=== PATIENT | female | born 1950 | race Asian ===

== ENCOUNTER 2024-07-08 18:31 | Observation (INO) | payer MEDICARE, SELFPAY ==
--- NOTE | 2024-07-08 19:20 | P.CALLCOV_ITS ---
Call Coverage Note Note Date of Patient Contact: 07/08/24 Narrative of Care Provided: Accepted for transfer from [facility] in [place] for new CVA. Patient was in their ER with speech deficits and RUE weakness, peak NIH of 6 now improved to 2 per ER provider. Patient has been stable without change since yesterday afternoon, no beds at their facility due to Norovirus outbreak and no beds at their acute rehab. Was seen by therapy today and recommended for acute rehab. She was admitted to stroke service on 07/03: discharge summary included here for ease of transfer of information. In short she had recent stroke in may 2024, she went to acute rehab at [facility] after that. She returned for speech difficulties around 07/02 and unilateral weakness and went to stroke center with negative evaluation, possible capsular syndrome. She had negative evaluation there and normal EEG. She returned with new symptoms to [facility] on 07/07 with same symptoms. MRI there showed a NEW infarct. Recommended for asa/plavix x21 days. PT/OT eval recommended acute rehab there. Prior TTE done 05/2024. She basically is transferred from [facility] ER for continued therapy prior to acute rehab given lack of available beds at [facility]. From stroke service discharge summary: The patient is a 73-year-old female patient that with past medical history of osteoarthritis, gastroesophageal flux disease, lumbar spondylosis, hypertension, hyperlipidemia, anxiety and depression, type 2 diabetes, chronic pain syndrome, opiate dependence who was transferred from outside hospital for recurrent episodes of facial drooping/dizziness and aphasia. ? The patient was admitted to outside hospital on May for evaluation of left-sided weakness. CT head was unremarkable but MRI confirmed the presence of acute lacunar stroke in the right zainab. She had TTE that was unremarkable and carotid Doppler that was unremarkable for significant stenosis. She was started on dual antiplatelet therapy by aspirin and Plavix for 21 days then switch to aspirin monotherapy with high intensity statin. As per the interview today, the patient as well as his sister mentioned that the day before yesterday 07/01/2024 while the patient was standing up was not flowing her room, she had a sudden onset dizziness that she describes as wobbly sensation as well as unsteadiness that was followed within a few minutes by generalized body weakness but the patient did not sustain any fall and was able to slide herself down to sit on the floor. She also relates that she was not able to speak and shortly her sister arrived and picked her up to sit on the bed. The sister tells me that the patient was not able to speak but there was no evidence of facial asymmetry, abnormal body movements or eye deviation. The entire episode lasted between 30 minutes up to 1 hour. On the next day, they re ported this episode to the physical therapy recommended evaluation in the ED. She presented to the ED for outside hospital where she had unremarkable physical examination, stable vital signs, unremarkable CT head and brain MRI obtained as well that showed only her prior right pontine stroke. Today, 07/03/2024 around 7:30 AM while she was sitting down to have her breakfast, she had sudden onset aphasia that her sister witnessed again. This lasted for around 5 to 6 minutes and was associated with left lower facial asymmetry/drooping as well as dizziness. The sister did measure her blood pressure during this episode and reported at 179/91 mmHg. She reported to outside hospital where she had a repeat CT head that was unremarkable although while in the CT scan suite, her nurses reported 3 minutes episode of right-sided weakness and facial drooping as per documentation. She was loaded with 300 mg of clopidogrel in the outside hospital and the patient was transferred to [facility] for further evaluation of suspected capsular warning syndrome versus recrudescence of old stroke. ? In the ED, vital signs included a blood pressure of 169/71 mmHg, pulse rate of 84, respiratory of 20 and temperature of 36.7. On my evaluation the patient had fluent speech without evidence of aphasia, paraphasia or dysarthria. She had intact naming and repetition. There was no evidence of facial asymmetry, plantar drift, dysmetria. Her deep tendon reflexes examination showed brisk but symmetrical deep tendon reflexes in upper lower extremities without evidence of pathological reflexes such as Anel Babinski. In the ED, she was given 81 mg of aspirin as well as 1 L of LR. ? HOSPITAL COURSE: ? Admitted for further work-up. She was continued on DAPT. Home BP meds held for permissive HTN given possibility of stroke. ? TCD with ME were attempted but unable to visualize L MCA due to temporal hyperostosis. EEG was unremarkable. MRI showed moderate amount of small vessel disease, no infarct, no evidence of CAA. ? Overall, her experience of repetitive episodes of possible expressive aphasia, R sided weakness, and dizziness does not have a clear etiology. Aphasia makes a capsular or pontine warning syndrome less likely unless it was in fact anarthria. Thalamic TIA could conceivable cause such a syndrome depending on internal capsular involvement. No fixed stenosis as source of recurrent hypoperfusion infarct events. No CAA on MRI so this was not an amyloid spell. ? We will treat with DAPT x21 then ASA monotherapy. She should also take high i ntensity statin and treat blood pressure. She was on losartan + atenolol at home. We opted to increase losartan and switch the atenolol with amlodipine. We had her continue home metformin on discharge. ? Follow up with PCP and stroke clinic. ER documentation available: FriJul 07, 2024 0858 Triage note reviewed, vitals seema mcclellan, EMS report received [MR] 0918 Code stroke activated [MR] 0919 Deficits resolved [MR] 0925 On repeat exam now with slightly th ickened speech compared to initial, and some right upper extremity weakness but not as severe as before [MR] 0925 NIH Stroke Scale/Score (NIHSS) ?RES ULT SUMMARY:2 pointsNIH Stroke Scale??INPUTS:1A: Level of consciousness -> 0 = Alert; keenly lwcliorjon7D: Ask month and age -> 0 = Both questions [id number]: 'Blink eyes' & 'squeeze hands' -> 0 = Performs both tasks2: Horizontal extraocular movements -> 0 = Normal3: Visual baker -> 0 = No visual loss4: Facial palsy -> 0 = Normal bedrtofu3W: Left arm motor drift -> 0 = No drift for 10 aswemvd5P: Right arm motor drift -> 2 = Drift, hits bed6A: Left leg motor drift -> 0 = No drift for 5 rmevrcj4S: Right leg motor drift -> 0 = No drift for 5 seconds7: Limb Ataxia -> 0 = No ataxia8: Sensation -> 0 = Normal; no sensory loss9: Language/aphasia -> 0 = Normal; no : Dysarthria -> 0 = Cjrkyy14: Extinction/inattention -> 0 = No abnormality?This was initial NIH [MR] 0926 This was peak NIH?NIH Stroke Scale/ Score (NIHSS) from [employer] on 07/07/2024 All calculations should be rechecked by clinician prior to use ?RESULT SUMMARY:8 pointsNIH Stroke Scale??INPUTS:1A: Level of consciousness -> 0 = Alert; keenly ogmjuzjcuu6K: Ask month and age -> 2 = Icjcmlm2R: 'Blink eyes' & 'squeeze hands' -> 0 = Performs both tasks2: Horizontal extraocular movements -> 0 = Normal3: Visual baker -> 0 = No visual loss4: Facial palsy -> 0 = Normal mqmfwvaz6X: Left arm motor drift -> 0 = No drift for 10 iiqjtrn9G: Right arm motor drift -> 2 = Drift, hits bed6A: Left leg motor drift -> 0 = No drift for 5 vuljipi8L: Right leg motor drift -> 0 = No drift for 5 seconds7: Limb Ataxia -> 0 = No ataxia8: Sensation -> 0 = Normal; no sensory loss9: Language/aphasia -> 2 = Severe aphasia: fragmentary expression, inference needed, cannot identify [id number]: Dysarthria -> 2 = Severe dysarthria: unintelligible slurring or out of proportion to fzndllela38: Extinction/inattention -> 0 = No abnormality [MR] 0927 Improved speech intelligible, right arm improved but still weak, some drift but does not touch bed [MR] 0943 Patient back to normal, and has pas sed p.o. swallowing eval, will get her morning dose of aspirin and Plavix [MR] 0944 Patient is not a candidate for tPA with multiple contraindications including recent stroke [MR] 0944 Labs ordered and reviewed: CBC norm al [MR] 1000 Patient transfer/ admission notific ation/ consideration:Fidelia Gilbert was felt to require admission/ transfer: I spoke with the warehouse guard at 1000 on 07/07/2024 to initiate the process [MR] 1001 Given patient just discharged from [facility] will talk to them first [MR] 1016 Patient with slight slurring, mild right upper extremity weakness [MR] 1033 Patient continues to have waxing an d waning neurologic symptoms, almost i mpossible to document the frequency. Multiple checks, at some moments she is totally normal, clear speech no weakness, some moments slight slurring speech, mild weakness right upper arm, transient and then improves. Nothing has been as severe as the initial NIH of 6 documented above. The NIH fluctuates with the nurse with numerous episodes repeatedly [MR] 1045 Discussed with [facility]/ Stroke neurol ogist [MR] 1045 Dr. Peng [MR] 1057 Concern for capusular stroke syndro me (at risk), request repeat CT angio and MR [MR] 1124 - Send gen [id number] to see if metabolizer, if is add 3rd agent cilostazol 2mg TWICE DAILY x 21 days (then can shave off plavix after 21 days)- if not metabolizer can do ta [MR] 1128 Lab looking into see if we can send the genetic testing [MR] 1217 Lab comfirmed [id number] availability and is a send out., They have put in the order [MR] 1402 Updated with neuro at [facility], MRI posi tive for new stroke, so was capsular syndrome. They recommended simply continue the aspirin and Plavix, and if the genetic testing we sent out is positive then would add the cilostazol and wean off the Plavix after 21 days. They would like for the patient be admitted here [MR] 1403 Patient transfer/ admission notific ation/ consideration:Fidelia Gilbert was felt to require admission/ transfer: I spoke with the warehouse guard at 1403 on 07/07/2024 to initiate the process [MR] 1612 I have just been informed that the hospitals been closed to admissions due to norovirus outbreak. Bed search underway [MR] [facility] Jul 08, 2024 0654 No issues overnight, no fluctuation s in neurologic exam. Patient signed back out to Dr. Lemon at shift change [YENNIFER] ? ED Course User Index[YENNIFER] Vic Larios DO[MR] Garth Lemon MD IMAGING AT [facility]: MR HEAD WO CONTRAST AND MRA HEAD Clinical: Acute Neuro symptoms Comparison: Prior CT scan July 07, 2024 from prior MRI July 02, 2024 Procedure: MRI of the brain and MR angiogram of the [place]. Findings: There are no intra- or extra- axial mass lesions, collections or hemorrhages. ? The ventricles and sulci are normal. ? White matter: There are numerous foci of abnormal T2-weighted signal intensity throughout the periventricular, deep white and subcortical white matter?bilaterally. 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 There is an horizontal linear focus of new restricted diffusion within the left centrally. Susceptibility artifacts: None Cervical medullary Junction: Normal The visualized vascular flow voids are unremarkable. There is chronic appearing complete opacification of the left maxillary sinus. There is abnormal bright T1-weighted, dark T2 weighted signal intensity throughout the right maxillary sinus. There is scattered mucosal thickening throughout the ethmoid air cells. There is complete opacification of the hypoplastic frontal sinuses bilaterally. The rest of the visualized soft tissues and osseous structures are normal. There is no abnormal enhancement. MRA of the [place]: Limitations: Motion artifact There is an apparent stenosis within the mid left middle cerebral artery M1 segment, likely artifactual due to motion artifact. No aneurysms are identified with special attention to the right internal carotid artery. Stable judgment of the supraclinoid internal carotid artery. No branch occlusions are present. There are no?significant anatomical variations. Impression: 1. New increased diffusion weighted signal intensity within the left zainab may represent a new small vessel infarct, superimposed on vascular ischemic changes. 2. Severe microvascular white matter ischemic changes. 3. No significant stenoses of the [place]. 4. Chronic paranasal sinus opacification. PRIOR TTE 2023. Echo complete per protocol Order: [id number] Narrative Ht: ? ? 147 cm Wt: ? ? 57 kg BSA: ? ? 1.55 m2 BP: ? ? 183 / ? ? 96 mmHg Study Info Indications ?? ? - Cerebral Thrombosis, ?Embolism, ?Artery Occlusion Procedure(s) ??Complete two-dimensional, color flow and Doppler transthoracic echocardiogram is performed. Department: ? ? [facility] ECHO Exam Type: ? ? ECHOCARDIOGRAM COMPLETE DOPPLER AND COLOR FLOW Staff Ordering Physician: ? ? Jackson Stewart Pants Closer: ? ? Oscar Colon Impression ??* Left ventricular size and systolic?function are normal, with an EF of 60 %. ??* Right ventricle is normal in size and systolic function is normal. ??* There is trace aortic valve regurgitation. ??* There is trace mitral valve regurgitation. ??* There is trace tricuspid valve regurgitation. ??* Unable to estimate pulmonary artery systolic pressure due to inadequate tricuspid regurgitant envelope. Left Ventricle ??Left ventricular chamber dimension is normal in size. Left ventricular systolic function is normal with an ejection fraction by Biplane Method of Discs of 60 %. There is no increased left ventricular wall thickness. Left ventricular segmental wall motion is normal. The left ventricular diastolic function is consistent with grade I diastolic dysfunction. Right Ventricle ??Right ventricular chamber dimension is normal in size. Right ventricular systolic function is normal. Left Atrium ??Left atrial chamber dimension is mildly dilated. Right Atrium ??Right atrial chamber dimension is normal in size. Atrial Septum ??Intact interatrial septum visualized by 2D and color flow imaging. Aortic Valve ??The aortic valve is trileaflet. There is no aortic valve stenosis. There is trace aortic valve regurgitation. Pulmonic Valve ??The pulmonic?valve is not well visualized. Mitral Valve ??The mitral valve is normal. There is no mitral valve stenosis. There is trace mitral valve regurgitation. Tricuspid Valve ??The tricuspid valve is normal. There is no tricuspid valve stenosis. There is trace tricuspid valve regurgitation. Unable to estimate pulmonary artery systolic pressure due to inadequate tricuspid regurgitant envelope. The estimated central venous pressure is 3 mmHg. Pericardium/Pleural ??The pericardium appears normal. There is no pericardial effusion. Inferior Vena Cava ??The inferior vena cava is normal in size. There is greater than 50% collapse of the IVC upon inspiration consistent with normal right atrial pressure, 3 mmHg. Aorta ??The aortic root at the sinus of Valsalva is normal measuring 2.8 cm with an index of 1.8 cm/m2. The proximal ascending aorta is upper limits of normal measuring 3.6 cm with an index of 2.3 cm/m2. Measurements Left Ventricular Outflow Tract Name ? Value ?Normal LVOT 2D LVOT Diameter ? 1.7 cm ? LVOT Doppler LVOT Peak Velocity ? 91.0 cm/s ? LVOT Mean Gradient ?2 mmHg? LVOT VTI ? 18.8 cm ? LVOT VTI/AV VTI Ratio ?0.8 ? LVOT Stroke Volume ? 42.7 ml ? LVOT Stroke Volume Index ?28 ml/m2 ? 35-58 Tricuspid Valve Name ? Value ?Normal Estimated PAP/RSVP RA Pressure ? 3 mmHg ? <=5 Aorta Name ? Value ?Normal Ascending Aorta Aortic Root (SoV) Diameter ?2.8 cm ? ? ? 2.4-3.6 Aortic Root (SoV) Index ?1.8 cm/m2 ? ? ? 1.4-2.2 ?Ao Sinotub Junction Diameter ?2.9 cm ? ? ? 2.3-2.9 Prox Asc Ao Diameter ?3.6 cm ? ? ? 1.9-3.5 Prox Asc Ao Diameter Index ? ? ? 2.3 cm/m2 ? ? ? 1.0-2.2 Aortic Valve Name ? Value ?Normal AV Doppler AV Peak Velocity ? 1.2 m/s ? AV Mean Gradient ?3 mmHg ? AV VTI ? 24.8 cm ? AV Area (Cont Eq VTI) ?1.7 cm2 ? >=3.0 AV Area (Cont Eq Juancho) ?1.7 cm2 ? AV DI (Juancho) ? 0.75 ? AV DI (VTI) ? 0.76 ? AV Regurgitation 2D LVOT Area ?2.3 cm2 Ventricles Name ? Value ?Normal LV Dimensions 2D/MM ?IVS Diastolic Thickness (2D) ?0.8 cm ? ? ? 0.6-0.9 LVID Diastole (2D) ?4.4 cm ? ? ? 3.8-5.2 ?LVIW Diastolic Thickness (2D) ?0.7 cm ? ? ? 0.6-0.9 LVID Systole (2D) ? 3.0 cm ? ? ? 2.2-3.5 LVOT Diameter ? 1.7 cm ? LV Mass (2D Cubed) ?100.12 g ?67.00-162.00 LV Mass Index (2D Cubed) ? 64.7 g/m2 ? ? 43.0-95.0 ?Relative Wall Thickness (2D) ?0.32 ? LV Fractional Shortening/Ejection Fraction 2D/MM ?LV Fractional Shortening (2D) ?32 % ? 27-45 ?LV Diastolic Volume (4C MOD) ? 70.2 ml ? LV Systolic Volume (4C MOD) ?26.2 ml ? LV EF (4C MOD) ?62.7 % ?LV Diastolic Volume (2C MOD) ? 71.5 ml ? LV Systolic Volume (2C MOD) ?32.5 ml ? LV EF (2C MOD) ?54.5 % ?LV Diastolic Volume (BP MOD) ? 73 ml ?46-106 ?LV Diastolic Volume Index (BP MOD) ?47 ml/m2 ? 29-61 LV Systolic Volume (BP MOD) ?30 ml ? 14-42 ?LV Systolic Volume Index (BP MOD) ?19 ml/m2 ?8-24 LV EF (BP MOD) ?59.5 % ? ? 54.0-74.0 LV Diastolic Length (4C) ?7.4 cm ? LV Systolic Length (4C) ? 5.9 cm ? LV Stroke Volume (4C MOD) ?44 ml Atria Name ? Value ?Normal LA Dimensions LA Dimension (2D) ? 3.2 cm ? ? ? 2.7-3.8 LA Dimen Index (2D) ?2.1 cm/m2 ? LA Volume (BP MOD) ? 58.1 ml ? LA Volume Index (BP MOD) ?37.6 ml/m2 ? ? 16.0-34.0 Diastolic Function Name ? Value ?Normal LV Diastolic Function MV E Peak Velocity ? 59.2 cm/s ? MV A Peak Velocity ? 73.4 cm/s ? MV E/A ? 0.8 ? MV Decel Time (PW) ?183.0 ms ? LV TDI MV Septal e' Velocity ? 5.9 cm/s ? MV E/e' (Septal) ?10.1 ? MV Lateral e' Velocity ?8.3 cm/s ? MV E/e' (Lateral) ?7.2 ? MV e' Average ?7.07 cm/s ? MV E/e' (Average) ?8.6 Report Signatures Finalized by Enmanuel Alicea ? on 05/10/2024 10:06 AM
[2024-07-08 20:30] VITALS: BP 148/78; PULSE 104; RESP 19; TEMP 36.9; O2SAT 95
[2024-07-08 20:48] VITALS: BMI 24.0
[2024-07-08] MEDS: SODIUM CHLORIDE 0.9% 1,000 ML 75 ML IV (22:10)
[2024-07-08] MEDS: HEPARIN 5,000 UNIT/ML VIAL 5000 UNIT SUBCUT (22:10)
[2024-07-09] VITALS: BP 137/82; PULSE 78; RESP 16; TEMP 36.8; O2SAT 96
[2024-07-09 04:00] VITALS: BP 137/80; PULSE 86; RESP 18; TEMP 36.6; O2SAT 95
[2024-07-09 05:36] LABS: Add Manual Diff / Slide Review NO; Basophils Absolute Auto 0 /uL (0-100); Basophils Percent Auto 0.4 % (0-2); Eosinophils Absolute Auto 0 /uL (0-450); Hematocrit 35.1 % (36-46); Hemoglobin 11.5 g/dL (12.0-16.0); Lymphocytes Absolute Auto 1500 /uL (1100-4500); Lymphocytes Percent Auto 23.3 % (25-40); Mean Corpuscular HGB Conc 32.6 % (30-36); Mean Corpuscular Hemoglobin 27.5 PG (26-34); Mean Corpuscular Volume 84.3 fL (80-100); Monocytes Absolute Auto 1300 /uL (0-900); Monocytes Percent Auto 20.3 % (3-14); Neutrophils Absolute Auto 3500 /uL (1500-7000); Platelet Count 265 X10^3/uL (150-400); Red Blood Cell Count 4.16 X10^6/uL (4.0-5.2); Red Cell Distribution Width 15.1 % (11.6-14.8); White Blood Cell Count 6.2 X10^3/uL (4.5-11.0)
[2024-07-09 06:00] LABS: BUN Creatinine Ratio 17.7 (6-22); Blood Urea Nitrogen 22 mg/dL (7-17); Calcium 8.8 mg/dL (8.4-10.2); Carbon Dioxide 22 mmol/L (22-32); Chloride 106 mmol/L (98-107); Estimated Glomerular Filt Rate 47 mL/min (>60); Glucose 109 mg/dL (80-110); HEMOLYSIS 16 (0-50); Potassium 3.9 mmol/L (3.4-5.1); Sodium 137 mmol/L (137-145)
--- NOTE | 2024-07-09 06:11 | PM.HP.1 ---
History of Present Illness History of Present Illness Chief complaint: sent by [facility] ED Narrative: 73 year old female with past medical history of CVA, GERD, HTN, HLD, anxiety/depression, DM, osteoarthritis and chronic pain was sent here from [facility] in [facility] for new CVA. Per report, the patient on 05/09/24 was diagnosed with a lacunar stroke in the right zainab and with some left sided weakness. The patient also had carotid dopplers that were negative. The patient was started on duoneb antiplatelet therapy. 07/02/24 the patient also had speech difficulty and was admitted to stroke service on 07/03/24. During that admission, stroke workup however was negative and they though there was possible capsular syndrome. EEG also was negative. However, the patient presented to [facility] ER 07/07/24 again for speech deficits and RUEs weakness. NIH there was 6 but did improved to 2 per their ER physician. MRI shows new infarct and recommended to be on ASA/plavix x 21 days. The patient was supposed to have acute rehab there, however, due to lack of beds at [facility], the patient is to be transfer and admitted here for ongoing PT/OT and to be transfer back to [facility] for rehab when a bed opens up. The patient was seen in our medical telemetry floor. The patient speech is much improved and she is non focal on exam. Patient NIH score is a 1. Otherwise, the patient denies any headache, focal weakness, fever, chills, nausea, vomiting or diarrhea. Denies any chest pain or shortness of breath. [facility] Medical History (Updated 07/09/24 @ 05:53 by Maryan Rosa RN) Lacunar cerebrovascular accident (CVA) (~05/09/24) Diabetes mellitus Opioid dependence in remission Osteoarthritis Rotator cuff arthropathy Arthritis C. difficile colitis GERD (gastroesophageal reflux disease) COVID-19 Gout Chronic cough Shortness of breath Hypertension Back pain Bronchiectasis Allergic rhinitis Surgical History (Updated 07/09/24 @ 05:47 by Maryan Rosa RN) History of bronchoscopy History of tonsillectomy Family History (Updated 07/09/24 @ 05:47 by Maryan Rosa RN) Sister Breast CA Son Leukemia Social History household members: family Smoking Status: Never smoker alcohol intake: never Meds Home Medications and Allergies Home Medications Medication Instructions Recorded Confirmed Type amlodipine 10 mg tablet 10 mg PO DAILY 07/08/24 07/08/24 History aspirin 81 mg tablet,delayed 81 mg PO DAILY 07/08/24 07/08/24 History release atorvastatin 80 mg tablet 80 mg PO DAILY 07/08/24 07/08/24 History cetirizine 10 mg tablet 10 mg PO DAILY PRN ALLERGIES 07/08/24 07/08/24 History clopidogrel 75 mg tablet (Plavix) 75 mg PO DAILY 07/08/24 07/08/24 History diclofenac sodium 1 % topical gel 1 g topical QID PRN Pain, Mild 07/08/24 07/08/24 History ipratropium 0.5 mg-albuterol 3 mg 3 ml inhalation Q6H PRN Wheezing 07/08/24 07/08/24 History (2.5 mg base)/3 mL nebulization soln losartan 50 mg tablet 75 mg PO DAILY 07/08/24 07/08/24 History metformin 500 mg tablet 500 mg PO BID 07/08/24 07/08/24 History omeprazole 20 mg capsule,delayed 20 mg PO DAILY 07/08/24 07/08/24 History release oxycodone 5 mg tablet 5 mg PO Q6H PRN Pain (Scale Score 07/08/24 07/08/24 History 7-10) Allergies Allergy/AdvReac Type Severity Reaction Status Date / Time Penicillins Allergy Verified 07/09/24 05:40 lidocaine AdvReac Severe Hives Verified 07/09/24 05:40 gabapentin AdvReac Intermediate Gastrointestinal Verified 07/09/24 05:40 Upset duloxetine AdvReac Mild Nausea Verified 07/09/24 05:38 Latex, Natural Rubber AdvReac Mild ITCHING Verified 07/09/24 05:40 aspirin AdvReac Verified 07/09/24 05:40 lisinopril AdvReac Verified 07/09/24 05:40 Review of Systems Review of Systems ROS: Yes All systems reviewed with the patient and are negative except as otherwise documented Exam Vital Signs (past 8 hours): - 07/09/24 00:00 Temperature 98.2 F Pulse Rate 78 Respiratory Rate 16 Blood Pressure 137/82 Pulse Oximetry 96 Oxygen Flow Rate 0 Oxygen Delivery Method Room Air Oxygen Flow Rate 0 Narrative Exam Narrative: Physical Exam: GENERAL: The patient is not in any acute distressed. Awake and alert. HEENT: Nonicteric sclerae, PERRLA, EOMI. Oropharynx clear. Moist mucous membranes. Conjunctivae appear well perfused. HEART: Regular rate and rhythm without murmurs. No lower extremities edema. LUNGS: Clear to auscultation bilaterally. No wheezing, crackles or rhonchi ABDOMEN: Soft, positive bowel sounds, nontender. SKIN: No rash, no excessive bruising, petechiae, or purpura. NEUROLOGIC: AxO x 3. Cranial nerves II-XII intact without motor/sensory deficit. Objective Labs 07/09/24 05:13 07/09/24 05:13 Assessment & Plan Assessment & Plan narrative: New CVA with known old known stroke. Admit the patient to medical telemetry. PT/OT/ST. Continue ASA/Plavid/Statins. Once there is a rehab bed that opens up at [facility] consider to transfer the patient back. NIDDM. Hold home oral DM medications and monitor glucose with SQ insulin. HTN. Monitor BP and resume home medications accordingly. DVT PPx hep SQ Code status full code Disposition rehab in 1-2 days Time-Based Coding :: [TOTAL MINUTES] spent with patient and on the chart (including review of chart, obtaining history, exam, reviewing outside data, placing orders, documenting exam and treatment plan, and counseling patient) on [DATE]. Quality VTE Deep Vein Thrombosis/Pulmonary Embolism Present on Admission: No
[2024-07-09] MEDS: PANTOPRAZOLE DR 20 MG TABLET PO (07:09)
[2024-07-09 08:00] VITALS: BP 114/62; PULSE 88; RESP 14; TEMP 36.4; O2SAT 94
[2024-07-09] MEDS: ASPIRIN EC 81 MG TABLET PO (08:40)
[2024-07-09] MEDS: ATORVASTATIN 20 MG TABLET 80 MG PO (08:40)
[2024-07-09] MEDS: HEPARIN 5,000 UNIT/ML VIAL 5000 UNIT SUBCUT ×2 (08:40→20:21)
[2024-07-09] MEDS: CLOPIDOGREL 75 MG TABLET PO (08:40)
[2024-07-09] MEDS: AMLODIPINE 5 MG TABLET 10 MG PO (08:40)
--- NOTE | 2024-07-09 09:45 | PT.IIE ---
Surgical History (Last Updated 07/09/24 @ 05:47 by Maryan Rosa RN) History of bronchoscopy History of tonsillectomy Medical History (Last Updated 07/09/24 @ 05:53 by Maryan Rosa RN) Allergic rhinitis Arthritis Back pain Bronchiectasis C. difficile colitis Chronic cough COVID-19 Diabetes mellitus GERD (gastroesophageal reflux disease) Gout Hypertension Lacunar cerebrovascular accident (CVA) (~05/09/24) Opioid dependence in remission Osteoarthritis Rotator cuff arthropathy Shortness of breath Physical Therapy Inpatient Evaluation/Re-Eval M1 PT/OT-IP Prior Functional Status Start: 07/09/24 13:25 Freq: NEEDED Status: Active Protocol: Document 07/09/24 09:45 AB (Rec: 07/09/24 13:38 AB [id number]) Medical Review Prior Functional Status Medical History Reviewed Yes Communication Pt is an effective verbal communicator. Pt states that she is having a hard time with her speech at times. It is unclear if her word finding difficulties are due to new CVA or canadian as a second language. Mobility and Gait pt with h/o CVA in may and was d/c'd to acute rehab after that. pt d/c home and stated that she was modified independent with all mobilities and ambulation using a 4WW. Activities of Daily Living and IADL's Pt states that prior to CVA in May she was IND with all ADLs and living IND. Social History Household Members family Living Arrangements House Number of Floors (Floors) Two Floors Number of Stairs To Enter/Railing? pt stays on main level of the house no steps to enter Home Environment Standard Height Toilet,Walk in Shower,Built-In Shower Seat Home Equipment Four Wheel Walker,Straight Cane,Hand Held Shower,Grab Bars Near Toilet,Grab Bars In Shower Additional Social History Comment pt lives with her sister M2 PT-IP Current Condition Start: 07/09/24 13:25 Freq: NEEDED Status: Active Protocol: Document 07/09/24 09:45 AB (Rec: 07/09/24 13:38 AB [id number]) Physical Therapy Current Condition Current Condition Evaluation Date 07/09/24 Treatment Diagnosis CVA; difficulty in walking Onset Date 07/08/24 M3 PT-IP Subjective Start: 07/09/24 13:25 Freq: NEEDED Status: Active Protocol: Document 07/09/24 09:45 AB (Rec: 07/09/24 13:38 AB [id number]) Subjective Physical Therapy Visit Type Type Initial Evaluation Visit Start Time 09:45 Visit Stop Time 10:15 Number of LUMBER HANDLER Visits 0 Physical Therapy Visit Comments Patient Comments able to make needs known M4 PT-IP Mobility and Gait Start: 07/09/24 13:25 Freq: NEEDED Status: Active Protocol: Document 07/09/24 09:45 AB (Rec: 07/09/24 13:38 AB [id number]) PT-Bed Mobility Assessment Supine to Sit Supine to Sit Standby Assistance Sit to Supine Sit to Supine Standby Assistance PT-Transfer Assessment Sit to and From Stand Sit to and from Stand Contact Guard Assistance,1 Person Assistance,Use of Upper Extremities Equipment Transfer Assistive Device Gait Belt,Front Wheeled Walker Orthotic/Prosthetic Devices or Brace: No Comments Mobility Comments pt in bed and stated that she just got back to bed but agreed to do PT. obtained PLOF and home set up. BP: 137/78. completed supine to sit SBA. sit to stand CGA. pt ambulated in room using FWW min A and cues ~ 35 ft. presents with very guarded slow paced step to gait. pt requested to go back to bed. sit to supine SBA. positioned pt in bed. call light and table placed within reach. Gait Assessment Gait Gait Assistance Required: Minimum Assistance,1 Person Assist Distance (Feet) 35 Able to Maintain Weight Bearing Status Yes During Gait Assistive Devices Assistive Device Gait Belt,Front Wheeled Walker Orthotic/Prosthetic Devices or Brace: No Gait Deviations General Gait Pattern Ataxic,Decreased Stride Length ,Decreased Feet Clearance,Step -to Gait Factors Limiting Gait Function Factors Limiting Gait Function Decreased Activity Tolerance, Decreased Strength,Poor Balance,Poor Safety Awareness PT-Balance Assessment Sitting Balance and Reactions Static Sitting Balance Ability Good Dynamic Sitting Balance Ability Good Standing Balance and Reactions Static Standing Balance Ability Fair Dynamic Standing Balance Ability Fair Device Used FWW M5 PT-IP Objective Assessments Start: 07/09/24 13:25 Freq: NEEDED Status: Active Protocol: Document 07/09/24 09:45 AB (Rec: 07/09/24 13:38 [id number]) Orientation Orientation/Cognition Level of Alertness Alert Orientation Name,Place,Situation Language Function Ability Hard of Hearing Safety Awareness Decreased Safety Awareness Memory Description No Deficits Noted Gross Range of Motion Lower Extremity ROM Assessment Within Functional Limits Strength Lower Extremity Strength Assessment Within Functional Limits Sensation Assessment Sensation Gross Sensation Right UE Impaired Sensation Description Numbness Comments Sensation Comments c/o slight numbness on RUE Muscle Tone Muscle Tone WNL Yes M6 PT-IP Treatment Start: 07/09/24 13:25 Freq: NEEDED Status: Active Protocol: Document 07/09/24 09:45 AB (Rec: 07/09/24 13:38 AB [id number]) Physical Therapy Treatment Education Education Provided Safety M7 PT-IP Assessment and Plan Start: 07/09/24 13:25 Freq: NEEDED Status: Active Protocol: Document 07/09/24 09:45 AB (Rec: 07/09/24 13:38 AB [id number]) PT Summary Assessment and Plan Potential Rehabilitation Potential Fair Status of Condition at Evaluation Evolving Summary Impairments Pain,ROM,Strength,Balance, Coordination,Sensation,Tone, Cognition,Bed Mobility, Transfers,Gait,Activity Tolerance Assessment Summary pt is a 73 y/o F who is admitted for L CVA. pt was at [facility] but transferred to due to no bed availability at [facility] . pt requiring min A for ambulation using FWW and will benefit from acute rehab. Goals Bed Mobility Goal Independent Transfer Goal Independent,Front Wheeled Walker Gait Goal Independent,Front Wheel Walker Gait Distance 200 Days to Meet Goals 10 Frequency of Treatment Frequency Of Treatment Once a Day Treatment Plan Physical Therapy Treatment Plan Bed Mobility Training,Transfer Training,Gait Training, Therapeutic Exercise,Balance Retraining,Post Op Education, Discharge Planning,Hot or Cold Pack,Neuromuscular Re-ed, Coordination Retraining,Manual Therapy Precautions Other Precautions falls Recommendations To Nursing Amount of Assist Needed 1 Person Assist Discharge Recommendations PT Discharge Recommendations Acute Rehab Transportation Needs at Discharge Private Vehicle
[2024-07-09 12:00] VITALS: BP 137/75; PULSE 75; RESP 18; TEMP 36.6; O2SAT 98
--- NOTE | 2024-07-09 12:10 | OT.IP.EVAL ---
Past Medical History (Last Updated 07/09/24 @ 05:53 by Maryan Rosa RN) Allergic rhinitis Arthritis Back pain Bronchiectasis C. difficile colitis Chronic cough COVID-19 Diabetes mellitus GERD (gastroesophageal reflux disease) Gout Hypertension Lacunar cerebrovascular accident (CVA) (~05/09/24) Opioid dependence in remission Osteoarthritis Rotator cuff arthropathy Shortness of breath Surgical History (Last Updated 07/09/24 @ 05:47 by Maryan Rosa RN) History of bronchoscopy History of tonsillectomy Occupational Therapy Inpatient Evaluation/Re-Eval M1 PT/OT-IP Prior Functional Status Start: 07/09/24 12:18 Freq: NEEDED Status: Active Protocol: Document 07/09/24 12:18 CGR (Rec: 07/09/24 12:55 CGR [id number]) Medical Review Prior Functional Status Medical History Reviewed Yes Communication Pt is an effective verbal communicator. Pt states that she is having a hard time with her speech at times. It is unclear if her word finding difficulties are due to new CVA or spanish as a second language. Mobility and Gait Pt states that prior to CVA in May she was IND with all mobility. Activities of Daily Living and IADL's Pt states that prior to CVA in May she was IND with all ADLs and living IND. Social History Household Members family Living Arrangements House Number of Floors (Floors) One Floor Number of Stairs To Enter/Railing? no steps to enter Home Environment Standard Height Toilet,Walk in Shower Home Equipment Front Wheel Walker,Four Wheel Walker,Shower Seat with Backrest,Hand Held Shower,Grab Bars Near Toilet,Grab Bars In Shower Employment Status Retired Additional Social History Comment Pt states that prior to her May stroke she was living IND. She has since moved in with her sister and states that her sister does not leave her home alone. M2 OT-IP Current Condition Start: 07/09/24 12:18 Freq: Status: Active Protocol: Document 07/09/24 12:18 CGR (Rec: 07/09/24 12:55 CGR [id number]) Occupational Therapy Current Condition Current Condition Evaluation Date 07/09/24 Treatment Diagnosis 07/07 new onset CVA, recent 05/09 CVA Diagnosis Onset Date 07/08/24 M3 OT- IP Subjective and Pain Start: 07/09/24 12:18 Freq: Status: Active Protocol: Document 07/09/24 12:18 CGR (Rec: 07/09/24 12:55 CGR [id number]) OT- Subjective Occupational Therapy Visit Type Type Initial Evaluation Visit Start Time 11:34 Visit Stop Time 12:10 Notes Pt is agreeabe to therapy and states that someone else had already been in to see her walk. OT Pain Assessment Pain When Pain Assessed At Rest Pain Present Pain Present Denied Pain M4 OT- IP ADL's Start: 07/09/24 12:18 Freq: Status: Active Protocol: Document 07/09/24 12:18 CGR (Rec: 07/09/24 12:55 CGR [id number]) OT [id number] Comments OT Self-Feeding Comments not meal time OT ADL-Grooming General Evaluation Grooming Ability Standby Assistance Areas Needing Assistance Face Washing Comments OT Grooming Comments standing at sink This group underwriter assisted pt with brushing hair as she stated that her hair was a mess but then did not initiate brushing it. OT ADL-Oral Care Comments Oral Care Comments pt declined OT ADL-Dressing General Eval Lower Body Dressing Ability Independent Areas Needing Assistance Socks Comments OT Dressing Comments Pt demonstrated ability to take socks off and put them back on. OT ADL-Toileting General Evaluation Toileting Ability Standby Assistance Comments OT Toileting Comments Pt urinated seated on toielt. OT ADL-Bathing Comments OT Bathing Comments not performed M5 OT- IP IADL's Start: 07/09/24 12:18 Freq: Status: Active Protocol: Document 07/09/24 12:18 CGR (Rec: 07/09/24 12:55 CGR [id number]) OT-Instrumental Activities of Daily Living Deficits IADL Deficits Identified Deficits Home Safety Awareness Awareness of Need for Assistance at Home Decreased Awareness Ability to Problem Solve Emergency Able to Problem Solve Situations Medication Management Medication Management Caregiver Administers Money Management Money Management Comments Unsure if pt's sister now takes care of finnces. Meal Preparation Meal Preparation Caregiver Provides Assist Field Hauler Field Hauler Caregiver Provides Assist Driving Driving Comments Pt states that she has not been able to drive since the May CVA. M6 OT- IP Functional Cognition Start: 07/09/24 12:18 Freq: Status: Active Protocol: Document 07/09/24 12:18 CGR (Rec: 07/09/24 12:55 CGR [id number]) Cognitive Factors Limiting Selfcare Function Cognitive Ability Level of Alertness Alert Patient Orientation Name,Age,Birthday,Month,Date, Year,Day of Week,Place, Situation Attention Span Ability Capable of Focused Attention, Unable to Sustain Attention Ability to Follow Commands Able to Follow One Step Commands with Increased Time, Able to Follow One Step Commands with Repetition Cognitive Comments Cognitive Assessment Comments Pt would benefit from formal cognative assessment as pt is oriented but uses laughter at times to hid deficits. Pt states initially that she has 1 cat and one dog but then states that her son left her with 16 cats and that she brought 9 of them to her sisters basement to take care of the rats. OT- Vision and Hearing OT- Hearing Assessment OT- Hearing Assessment WFL OT- Vision Assessment Visual Acuity Glasses For Reading Visual Attentiveness WFL Occular Pursuits WFL Visual Convergence WFL Visual Segura Impaired Vision Assessment Comments Pt appears to have a left visual field, however, pt laughs uncontrollably during the testing to her L visual field but not during her right and is unable to state if she can see things on the L. M7 OT- IP Mobility and Balance Start: 07/09/24 12:18 Freq: Status: Active Protocol: Document 07/09/24 12:18 CGR (Rec: 07/09/24 12:55 CGR [id number]) OT- Bed Mobility Assessment Supine to Sit Supine to Sit Assist Standby Assistance,Bedrails Scooting Scooting to Edge of Bed Standby Assistance OT-Transfer Assessment Sit to and From Stand Sit to and from Stand Standby Assistance,Contact Guard Assistance Transfers Transfer Ability Standby Assistance,Contact Guard Assistance Technique Transfer Destination Bed,Chair,Toilet Transfer Technique Stand Step Pivot Devices Transfer Assistive Devices Gait Belt,Front Wheeled Walker Comments Mobility Comments Pt needs some instruction of use of walker for safety. OT- Gait Assessment Gait Gait Assistance Required: Standby Assistance Assistive Devices Assistive Device Gait Belt,Front Wheeled Walker OT- Balance Assessment Sitting Balance and Reactions Static Sitting Balance Ability Good Dynamic Sitting Balance Ability Good M8 OT- IP Objective Assessments Start: 07/09/24 12:18 Freq: Status: Active Protocol: Document 07/09/24 12:18 CGR (Rec: 07/09/24 12:55 CGR [id number]) OT Gross Range of Motion Upper Extremity Range of Motion Assessment Within Functional Limits OT Strength Upper Extremity Strength Assessment Right Impaired Comments Strength Comments R shld 3/5 L shld 4/5 R arm 4-/5 L arm 4+/5 R hand 4/5 L hand 4/5 OT- Coordination Assessment Upper Extremity Finger to Nose Test Within Functional Limits Finger Tapping Test Within Functional Limits Comments Coordination Comments with extra time OT-Muscle Tone Assessment Muscle Tone WNL Yes OT Sensation Assessment Comments Summary Comments Pt states that her R arm throughout is tingly Edema Edema Absent M9 OT- IP Assessment and Plan Start: 07/09/24 12:18 Freq: Status: Active Protocol: Document 07/09/24 12:18 CGR (Rec: 07/09/24 12:55 CGR [id number]) OT Summary Assessment and Plan Potential Rehabilitation Potential Good Analytic Complexity at Evaluation Moderate Summary OT Impairments Strength,Balance,Sensation, Functional Cognition, Functional Mobility,Bathing, Toilet Transfers,Shower Transfers,Activity Tolerance Progress Towards Goals Progressing Toward Goals Assessment Summary Pt presents as a moderate complexity evaluation s/p admit for new onset R sided weakness and speech deficits. Pt presents with R sided weakness and possible speech deficits. She also appears to have a L sided visual field cut but she is unable to reliably answer questions during testing d/t uncontrolled laughter. Pt also with some possible cognitive deficits. Per patient, her sister doesn't ever leave her unattended. Pt would benefit from acute rehab given new weakness but is also likely safe for discharge home with sister. Goals Self-Feeding Goal Independent Grooming Goal Independent Dressing Goal Independent Toileting Goal Independent Bathing Goal Independent Toilet Transfer Goal Independent OT-Other Goals complete cog assessment Days to Meet Goals 15 Frequency of Treatment Other frequency 5x a week Treatment Plan OT Treatment Plan ADL Training,Functional Cognition Training,Functional Mobility,Patient/Family Education,Discharge Planning Other Treatment Recommendations and Next SLUMS Treatment Focus Discharge Recommendations OT Discharge Recommendations SNF Rehab Transportation Needs at Discharge Private Vehicle
--- NOTE | 2024-07-09 12:52 | CM.DANOTE ---
Initial DCP Assessment Note Pt is a 73 yo female, resident of [place], arrives from the ER at [facility] after acute CVA with recent hx of CVA. PCP: Ninfa Lim Payer: [facility] Reviewed chart, pt discussed in multidisciplinary rounds this morning. Therapies pending today. Recommendation from the therapy staff at [facility] was acute inpatient rehab (IPR). Patient was not admitted to [facility] acute care d/t a norovirus outbreak. According to OT, patient remains a good candidate for IPR. Maty at [facility] IPR reports there will be no beds available until early next week. Met w/patient; introduced self and role. Patient reports that her and adult son within a year of each other 7 years ago. After that time, she moved in with her older sister. Patient has been mostly indp, has 10 cats and one chihuahua she says that her son collected. Sister and friends are taking care of these pets while patient is admitted. Patient's sister cooks, cleans and drives. Patient has [facility] services and would like these resumed if discharged home. Discussed discharge plan; patient agreeable to [facility] IPR. Explained there are not beds until next week. Patient declines [facility] IPR. Discussed the potential of returning home with sister and [facility]. Patient states concern, says her sister has a cold. Patient is tearful today talking about the losses she has endured, she is talkative and laughs throughout the visit, sometimes at inappropriate times. Therapy recommending IPR. Question out to Maty/[facility]- Can patient admit to IPR from home ? Plan: Discharge to IPR if patient remains through the weekend and auth from [facility] can be secured vs Home w/family and [facility] services. CM team will plan to follow clinical course closely. TIFFANY Patterson Discharge Planning/Care Management CM Discharge Assessment Start: 07/09/24 12:50 Freq: Status: Active Protocol: Document 07/09/24 12:50 TRANG (Rec: 07/09/24 12:52 TRANG [id number]) Discharge Planning Assessment Assigned [employer] Estate [employer] Principal TIFFANY Curran DPOA/Assigned Designee Name sister Franco Contact Information [phone] Advance Directives? No History Provided By Patient,Medical Record Comment Patient was transferred from [facility] ER Prior Living Arrangements House Household Members family Type of transporation used prior to Relies on Others admit Independent with ADL's Yes: Sister available to assist with higher ADLs prn Is patient alert and oriented? Yes Needs Assistance With Meal Prep,Home Chores / Shopping Barriers to Discharge Yes Comment OT= IPR, no beds until Friday. May discharge home over the weekend if back to functional and cognitive baseline. Transportation Arrangement Family Additional Comment [facility] IPR
--- NOTE | 2024-07-09 13:05 | CM.DPNOTE ---
DCP Cont F2F and HH order completed and has been shared with [facility]. Elaina at [facility] accepts for resumption of services if patient is discharged home. TRANG
--- NOTE | 2024-07-09 15:24 | ST.IPIE ---
Visit Care Team Role Provider Type Garth Lemon MD Referring Provider Non-Staff Specialty: Medical Address: [address] [place], [address] Email: Alyssa Lim MD Primary Care Provider Non-Staff Specialty: Medical Address: [address] [place] [address], [id number] Email: Tramaine Noyola DO Admit Provider Physician Attending Provider Specialty: Internal Medicine Address: [address] [place] [address], [id number] Email: [email or web address] Past Medical History (Last Updated 07/09/24 @ 05:53 by Maryan Rosa RN) Allergic rhinitis (Medical) Arthritis (Medical) Back pain (Medical) Bronchiectasis (Medical) C. difficile colitis (Medical) Chronic cough (Medical) COVID-19 (Medical) Diabetes mellitus (Medical) GERD (gastroesophageal reflux disease) (Medical) Gout (Medical) Hypertension (Medical) Lacunar cerebrovascular accident (CVA) (Medical ~05/09/24) Opioid dependence in remission (Medical) Osteoarthritis (Medical) Rotator cuff arthropathy (Medical) Shortness of breath (Medical) ST IP Initial Evaluation Report FILENET ADMIN Adult Cognitive Linguistic Eval Start: 07/09/24 15:03 Freq: Status: Active Protocol: Document 07/09/24 15:04 SS (Rec: 07/09/24 15:23 SS [id number]) Adult Cognitive Linguistic Evaluation Session Time Visit Start Time 13:50 Visit Stop Time 14:20 Total Visit Minutes 30 Visit Information Visit Number [address] Reji Austin MD Reason for Referral Cognitive-communication Setting Assessment Location Acute Care Visit Type Note Type Initial evaluation Patient Information Identification Type Name Patient History Per H&P, 73 year old female with past medical history of CVA, GERD, HTN, HLD, anxiety/ depression, DM, osteoarthritis and chronic pain [place] [facility] [facility] for new CVA. Per report, the patient on 05/09/24 was diagnosed with a lacunar stroke in the right zainab and with some left sided weakness. The patient also had carotid dopplers that were negative. The patient was started on duoneb antiplatelet therapy. 07/02/24 the patient also had speech difficulty and was admitted to stroke service on 07/03/24. During that admission, stroke workup however was negative and they though there was possible capsular syndrome. EEG also was negative. However, the patient presented to [facility] [place] again for speech deficits and RUEs weakness. NIH there was 6 but did improved to 2 per their ER physician. MRI shows new infarct and recommended to be on ASA/plavix x 21 days. The patient was supposed to have acute rehab there, however, due to lack of beds at [facility] [place] the patient is to be transfer and admitted here for ongoing PT/OT and to be transfer back to [facility] [place]hab when a bed opens up.The patient was seen in our medical telemetry floor . The patient speech is much improved and she is non focal on exam. Patient NIH score is a 1. Otherwise, the patient denies any headache, focal weakness, fever, chills, nausea, vomiting or diarrhea. Denies any chest pain or shortness of breath. Pt was seen today for cognitive- communication evaluation s/p CVA. Occupation Status Retired Hearing Hearing Level Normal Vision Vision Status Not Impaired Comments Wears reading glasses Previous Therapy Previous Speech-Language Therapy Yes History of Therapy Pt was seen at [facility], but cannot recall what treatment targeted. Subjective Patient Report Chart reviewed and RN consulted. RN reports no difficulty with swallowing and that mild dysrathria appears to have resolved. Pt alert and oriented upon FILENET ADMIN arrival. She denied swallowing or speech difficulty. She appeared easily distracted and her speech was tangential at times (though with appropriate content). She was able to respond to case history questions without difficulty. She reported she currently lives with her sister following her strokes. She currently relies on her for completion of most IADLs (e.g. , shopping, medication management, etc), though was previously independent with all IADLs, per pt report. No dysarthria noted and pt denied swallowing difficulty. Mental Status Alert,Responsive,Cooperative Assessment Oral Motor Examination Completed Yes Results OME WNL. Strength and ROM for jaw, lip, and tongue were WNL. Informal Assessment Receptive Language Normal Yes Expressive Language Normal Yes Pragmatic Language Normal No: Emotionally labile Pragmatic Language Impairment(s) Turn-taking,Topic maintenance Speech Normal Yes Cognition Normal No Cognitive Impairment(s) Attention,Short-term memory Formal Assessment Standardized Test/Screener Type [facility] Mental Status ([facility]) Administration Complete Results The [facility] Mental Status (UMS) Examination was used to obtain information regarding the patient?s cognitive abilities. The SLUMS consists of ten questions that assess delayed recall, verbal fluency, comprehension, calculations, attention, working memory, and orientation. A scored is calculated from a possible 30 points. Scores fall in one of three ranges describing a patient?s level of impairment based upon level of education. Patients who have completed high school are expected to score slightly higher on this test than those who have not. For someone with a high school education, WNL is 27-30. The SLUMS was completed on this date. Subtest scores are as follows: Orientation: 3/3 Immediate Recall: 5/5 (not calculated in total score) Numeric Calculation: 1/3 Divergent Namin/3 (total of 5. Pt highly distracted during this task with visual stimuli) Delayed Recall: 4/5 Attention/Registration with Digit Span: 1/2 Clock Drawing (Visuospatial & Executive Functioning): 4/4 Geometric Figures: 2/2 Short Story (memory/recall): 6 /8 Total Score: 22/30 indicative of mild neurocognitive disorder Findings/Results Language Function Mildly impaired Cognitive Function Mildly impaired Findings Pt demonstrated mild cognitive -communication impairment in the areas of attention and word-finding. Difficulties with attention affected her short-term memory as she has difficulty attending to information in order to be able to encode and retain it. Additionally, she had significant difficulty attending during word-finding task, impacting her performance, though she had no difficulty with word-finding during functional conversation . Pt is at an elevated risk of making critical errors with tasks such as medication management, time/schedule management, director of patient financial services, and completion of him specialists, as well as everyday tasks that require adequate skills in the areas of attention and immediate/ delayed memory. Skilled ST services with the goal of providing therapeutic education and training in the use of cognitive-communication compensatory strategies targeting attention and immediate and delayed memory for improved safety and independence at the next level of care are recommended. Cognitive Communication Deficits Self-awareness of Cognitive- Limited awareness (minimal Communication Deficits appreciation without specificity) Concomitant Factors Concomitant Factors Other (comment) Comment Limited awareness of deficits Prognosis Prognosis Good Based on Cognitive status,Family support,Duration of symptoms/ severity,Time since onset Plan of Care Speech-Language Treatment No Frequency Defer to next level of care given upcoming d/c Patient/Caregiver Education Patient expressed understanding of evaluation, Patient expressed agreement with goals and treatment plans Discharge Recommendations Home with Home Health, Outpatient therapy
[2024-07-09 16:00] VITALS: BP 139/73; PULSE 86; RESP 18; TEMP 36; O2SAT 98
--- NOTE | 2024-07-09 17:30 | P.PN_ITS ---
Subjective Subjective Date Patient Seen: 07/09/24 Time Patient Seen: 09:44 Interval history: Narrative: 73 year old female with past medical history of CVA, GERD, HTN, HLD, anxiety/depression, DM, osteoarthritis and chronic pain [place] [facility] [facility] for new CVA. Per report, the patient on 05/09/24 was diagnosed with a lacunar stroke in the right zainab and with some left sided weakness. The patient also had carotid dopplers that were negative. The patient was started on duoneb antiplatelet therapy. 07/02/24 the patient also had speech difficulty and was admitted to stroke service on 07/03/24. During that admission, stroke workup however was negative and they though there was possible capsular syndrome. EEG also was negative. However, the patient presented to [facility] [place] 07[place]07[place]24 again for speech deficits and RUEs weakness. NIH there was 6 but did improved to 2 per their ER physician. MRI shows new infarct and recommended to be on ASA/plavix x 21 days. The patient was supposed to have acute rehab there, however, due to lack of beds at [facility] the patient is to be transfer and admitted here for ongoing PT/OT and to be transfer back to [facility] [place] rehab when a bed opens up. The patient was seen in our medical telemetry floor. The patient speech is much improved and she is non focal on exam. Patient NIH score is a 1. Otherwise, the patient denies any headache, focal weakness, fever, chills, nausea, vomiting or diarrhea. Denies any chest pain or shortness of breath. Interval history: The patient is variably appropriate with responses, occasionally laughing, with possible visual field cut, otherwise without clear- cut focal deficits. Exam Vital Signs (past 8 hours): - 07/09/24 12:00 07/09/24 16:00 Temperature 97.9 F 96.8 F L Pulse Rate 75 86 Respiratory Rate 18 18 Blood Pressure 137/75 139/73 Pulse Oximetry 98 98 Oxygen Flow Rate 0 0 Oxygen Delivery Method Room Air Oxygen Flow Rate 0 Narrative Exam Narrative: GENERAL: This is a well-nourished, well-developed patient, in no apparent distress. HEAD: Atraumatic. Normocephalic. No temporal or scalp tenderness. EYES: Pupils equal round and reactive. Extraocular motions intact. No scleral icterus. No injection or drainage. ENT: Mucous membranes pink and moist. NECK: Trachea midline. No JVD, bruits or lymphadenopathy. Supple, nontender, no meningeal signs. CARDIOVASCULAR: Regular rate and rhythm without murmurs, gallops, or rubs. RESPIRATORY: Clear to auscultation. GASTROINTESTINAL: Abdomen soft, non-tender, nondistended. EXTREMITIES: No clubbing, cyanosis, or edema. BACK: Nontender without deformity or crepitance. No flank tenderness. NEUROLOGIC: Alert, oriented, speech fluent, with left visual field cut noted, possibly with some right peripheral visual field cuts, with central vision clearly intact, full upper and lower motor strength, otherwise no focal deficits evident. DERMATOLOGIC: No rashes or skin lesions. Objective Labs 07/09/24 05:13 07/09/24 05:13 Labs: Laboratory Results - last 24 hr 07/09/24 05:13 WBC 6.2 RBC 4.16 Hgb 11.5 L Hct 35.1 L MCV 84.3 MCH 27.5 MCHC 32.6 RDW 15.1 H Plt Count 265 Neut % (Auto) 56.0 Lymph % (Auto) 23.3 L [place] % (Auto) 20.3 H Eos % (Auto) 0.0 L Baso % (Auto) 0.4 Neut # (Auto) 3500 Lymph # (Auto) 1500 [place] # (Auto) 1300 H Eos # (Auto) 0 Baso # (Auto) 0 Sodium 137 Potassium 3.9 Chloride 106 Carbon Dioxide 22 BUN 22 H Creatinine 1.24 H Estimated GFR 47 L BUN/Creatinine Ratio 17.7 Glucose 109 Calcium 8.8 PFSH Medical History (Updated 07/09/24 @ 05:53 by Maryan Rosa RN) Allergic rhinitis Arthritis Back pain Bronchiectasis C. difficile colitis Chronic cough COVID-19 Diabetes mellitus GERD (gastroesophageal reflux disease) Gout Hypertension Lacunar cerebrovascular accident (CVA) (~05/09/24) Opioid dependence in remission Osteoarthritis Rotator cuff arthropathy Shortness of breath Surgical History (Updated 07/09/24 @ 05:47 by Maryan Rosa RN) History of bronchoscopy History of tonsillectomy Family History (Updated 07/09/24 @ 05:47 by Maryan Rosa RN) Sister Breast CA Son Leukemia Social History household members: family Smoking Status: Never smoker alcohol intake: never Assessment & Plan Assessment & Plan narrative: 1. New CVA with known old known stroke. Possible visual field cut and changes in affect with stroke. Monitor clinically on observation status on medical telemetry. PT/OT/ST. Continue ASA/Plavix/Statins. Once there is a rehab bed that opens up at [facility] consider to transfer the patient back. 2. NIDDM. Hold home oral DM medications and monitor glucose with SQ insulin. 3. HTN. Monitor BP and continue amlodipine and resume home losartan when blood pressures rising accordingly. DVT PPx hep SQ Code status full code Disposition rehab in 1-2 days Quality VTE Deep Vein Thrombosis/Pulmonary Embolism Present on Admission: No IH PROFEE Automatic Machine Attendant Document charge(s): No Charge Codes Subsequent inpatient/observation care: [id number]
[2024-07-09 20:00] VITALS: BP 133/75; PULSE 84; RESP 18; TEMP 36.1; O2SAT 96
[2024-07-09] MEDS: OXYCODONE IR 5 MG TABLET PO (20:25)
[2024-07-10] VITALS: BP 125/72; PULSE 63; RESP 18; TEMP 36.2; O2SAT 94
[2024-07-10] MEDS: ATORVASTATIN 20 MG TABLET 80 MG PO (08:39)
[2024-07-10] MEDS: CLOPIDOGREL 75 MG TABLET PO (08:39)
[2024-07-10] MEDS: AMLODIPINE 5 MG TABLET 10 MG PO (08:39)
[2024-07-10] MEDS: HEPARIN 5,000 UNIT/ML VIAL 5000 UNIT SUBCUT ×2 (08:39→21:07)
[2024-07-10] MEDS: ASPIRIN EC 81 MG TABLET PO (08:39)
[2024-07-10] MEDS: PANTOPRAZOLE DR 20 MG TABLET PO (08:39)
[2024-07-10 12:00] VITALS: BP 141/92; PULSE 90; RESP 18; TEMP 36.3; O2SAT 93
--- NOTE | 2024-07-10 13:15 | P.PN_ITS ---
Subjective Subjective Date Patient Seen: 07/10/24 Time Patient Seen: 10:50 Interval history: Narrative: 73 year old female with past medical history of CVA, GERD, HTN, HLD, anxiety/depression, DM, osteoarthritis and chronic pain was [place] [facility] [place] [facility] for new CVA. Per report, the patient on 05/09/24 was diagnosed with a lacunar stroke in the right zainab and with some left sided weakness. The patient also had carotid dopplers that were negative. The patient was started on duoneb antiplatelet therapy. 07/02/24 the patient also had speech difficulty and was admitted to stroke service on 07/03/24. During that admission, stroke workup however was negative and they though there was possible capsular syndrome. EEG also was negative. However, the patient presented to [facility] [place] 07[place]07[place]24 again for speech deficits and RUEs weakness. NIH there was 6 but did improved to 2 per their ER physician. MRI shows new infarct and recommended to be on ASA/plavix x 21 days. The patient was supposed to have acute rehab there, however, due to lack of beds at [facility], the patient is to be transfer and admitted here for ongoing PT/OT and to be transfer back to [facility] [place] rehab when a bed opens up. The patient was seen in our medical telemetry floor. The patient speech is much improved and she is non focal on exam. Patient NIH score is a 1. Otherwise, the patient denies any headache, focal weakness, fever, chills, nausea, vomiting or diarrhea. Denies any chest pain or shortness of breath. Interval history: The patient is calm, appears comfortable, with persistent left visual field cut noted, otherwise no focal neurologic deficits evident on interview, with variable responses, intermittently tearful or laughing. Exam Vital Signs (past 8 hours): - 07/10/24 12:00 Temperature 97.3 F L Pulse Rate 90 Respiratory Rate 18 Blood Pressure 141/92 H Pulse Oximetry 93 Oxygen Flow Rate 0 Oxygen Delivery Method Room Air Oxygen Flow Rate 0 Narrative Exam Narrative: GENERAL: This is a well-nourished, well-developed patient, in no apparent distress. EYES: Pupils equal round and reactive. Extraocular motions intact. No scleral icterus. No injection or drainage. ENT: Mucous membranes pink and moist. NECK: Trachea midline. No JVD, bruits or lymphadenopathy. Supple, nontender, no meningeal signs. CARDIOVASCULAR: Regular rate and rhythm without murmurs, gallops, or rubs. RESPIRATORY: Clear to auscultation. GASTROINTESTINAL: Abdomen soft, non-tender, nondistended. EXTREMITIES: No clubbing, cyanosis, or edema. BACK: Nontender without deformity or crepitance. No flank tenderness. NEUROLOGIC: Alert, oriented, speech fluent, with left visual field cut noted, full upper and lower motor strength, otherwise no focal deficits evident. DERMATOLOGIC: No rashes or skin lesions. Objective Labs 07/09/24 05:13 07/09/24 05:13 COUNTS INCLUDE 234 BEDS AT THE [facility] Medical History Allergic rhinitis Arthritis Back pain Bronchiectasis C. difficile colitis Chronic cough COVID-19 Diabetes mellitus GERD (gastroesophageal reflux disease) Gout Hypertension Lacunar cerebrovascular accident (CVA) (~05/09/24) Opioid dependence in remission Osteoarthritis Rotator cuff arthropathy Shortness of breath Surgical History History of bronchoscopy History of tonsillectomy Family History Sister Breast CA Son Leukemia Social History household members: family Smoking Status: Never smoker alcohol intake: never Assessment & Plan Assessment & Plan narrative: 1. New CVA with known old known stroke. MRI 07/07/2024 showed new increased diffusion-weighted signal intensity within the left zainab may represent a new small vessel infarct superimposed on vascular ischemic changes Possible visual field cut and changes in affect with stroke. Monitor clinically on observation status on medical telemetry. Echocardiogram 05/2024 showed ejection fraction 60%, no wall motion abnormalities, trace aortic, mitral and tricuspid regurgitation. PT/OT/ST. Continue ASA/Plavix/Statins. Once there is a rehab bed that opens up at [facility] consider to transfer the patient back. The patient is agreeable with this plan. 2. Diabetes mellitus, type 2. Hold home oral DM medications and monitor glucose with SQ insulin. 3. HTN. Blood pressure well controlled. Monitor BP and continue amlodipine and resume home losartan when blood pressures rising accordingly. 4. Hyperlipidemia. Continue statin. DVT PPx hep SQ Code status full code Disposition rehab in 1-2 days Quality VTE Deep Vein Thrombosis/Pulmonary Embolism Present on Admission: No IH PROFEE Service Center Supervisor Document charge(s): No Charge Codes Subsequent inpatient/observation care: [id number]
--- NOTE | 2024-07-10 14:06 | PT.IPTN ---
Physical Therapy Treatment Note M2 PT-IP Current Condition Start: 07/09/24 13:25 Freq: NEEDED Status: Active Protocol: Document 07/09/24 09:45 AB (Rec: 07/09/24 13:38 AB [id number]) Physical Therapy Current Condition Current Condition Evaluation Date 07/09/24 Treatment Diagnosis CVA; difficulty in walking Onset Date 07/08/24 M3 PT-IP Subjective Start: 07/09/24 13:25 Freq: NEEDED Status: Active Protocol: Document 07/10/24 14:01 AMB (Rec: 07/10/24 14:06 AMB [id number]) Subjective Physical Therapy Visit Type Type Treatment Note Visit Start Time 13:30 Visit Stop Time 13:50 Physical Therapy Visit Comments Patient Comments Pt states she is tired, but she is able to get up M4 PT-IP Mobility and Gait Start: 07/09/24 13:25 Freq: NEEDED Status: Active Protocol: Document 07/10/24 14:01 AMB (Rec: 07/10/24 14:06 AMB [id number]) PT-Bed Mobility Assessment Supine to Sit Supine to Sit Standby Assistance Sit to Supine Sit to Supine Standby Assistance PT-Transfer Assessment Sit to and From Stand Sit to and from Stand Contact Guard Assistance,1 Person Assistance,Use of Upper Extremities Equipment Transfer Assistive Device Gait Belt,Front Wheeled Walker Orthotic/Prosthetic Devices or Brace: No Comments Mobility Comments Pt states that she was dizzy earlier today, so she is quite slow with getting up as she is hoping to not become dizzy again. Able to move through bed mobility and sit to stand with stand by and CGA. Gait Assessment Gait Gait Assistance Required: Contact Guard Assist Distance (Feet) 90 Assistive Devices Assistive Device Gait Belt,Front Wheeled Walker Orthotic/Prosthetic Devices or Brace: No Gait Deviations General Gait Pattern Decreased Stride Length, Decreased Feet Clearance Comments Gait Comments Fidelia has some mild veering while using her MD ZIA reports field cut. M5 PT-IP Objective Assessments Start: 07/09/24 13:25 Freq: NEEDED Status: Active Protocol: Document 07/09/24 09:45 AB (Rec: 07/09/24 13:38 AB [id number]) Orientation Orientation/Cognition Level of Alertness Alert Orientation Name,Place,Situation Language Function Ability Hard of Hearing Safety Awareness Decreased Safety Awareness Memory Description No Deficits Noted Gross Range of Motion Lower Extremity ROM Assessment Within Functional Limits Strength Lower Extremity Strength Assessment Within Functional Limits Sensation Assessment Sensation Gross Sensation Right UE Impaired Sensation Description Numbness Comments Sensation Comments c/o slight numbness on RUE Muscle Tone Muscle Tone WNL Yes M6 PT-IP Treatment Start: 07/09/24 13:25 Freq: NEEDED Status: Active Protocol: Document 07/09/24 09:45 AB (Rec: 07/09/24 13:38 AB [id number]) Physical Therapy Treatment Education Education Provided Safety M7 PT-IP Assessment and Plan Start: 07/09/24 13:25 Freq: NEEDED Status: Active Protocol: Document 07/10/24 14:01 AMB (Rec: 07/10/24 14:06 AMB [id number]) PT Summary Assessment and Plan Summary Assessment Summary Fidelia continues to be slow and careful with her movements , able to walk with FWW and move from sit to stand with CGA. Some mild veering noted when using the FWW in the hallway. She lives with her sister, no stairs, but wants to be able to take care of her dogs when she gets home. Goals Bed Mobility Goal Independent Transfer Goal Independent,Front Wheeled Walker Gait Goal Independent,Front Wheel Walker Gait Distance 200 Days to Meet Goals 10 Frequency of Treatment Frequency Of Treatment Once a Day Treatment Plan Physical Therapy Treatment Plan Bed Mobility Training,Transfer Training,Gait Training, Therapeutic Exercise,Balance Retraining,Post Op Education, Discharge Planning,Hot or Cold Pack,Neuromuscular Re-ed, Coordination Retraining,Manual Therapy Recommendations To Nursing Amount of Assist Needed 1 Person Assist Discharge Recommendations PT Discharge Recommendations Acute Rehab Transportation Needs at Discharge Private Vehicle
[2024-07-10 16:00] VITALS: BP 135/76; PULSE 84; RESP 18; TEMP 35.7; O2SAT 97
--- NOTE | 2024-07-10 16:34 | CM.DPNOTE ---
DCP note Per provider, pt continues to have deficits and would benefit from INPT rehab. DRESS FINISHER spoke with Maty from [facility], will attempt auth and have potential bed availability friday. Asked for updated clinicals. DRESS FINISHER faxed PN and updated PT/OT notes end of day Friday. P: dc to [facility] vs home with sister and [facility] pending auth/pt preference. transport pending. CM team will continue to follow closely TIFFANY Kelly
[2024-07-10 20:00] VITALS: BP 143/79; PULSE 83; RESP 18; TEMP 36.1; O2SAT 94
[2024-07-10] MEDS: OXYCODONE IR 5 MG TABLET PO (21:07)
[2024-07-11] VITALS: BP 137/81; PULSE 82; RESP 18; TEMP 36.2; O2SAT 96
[2024-07-11 04:00] VITALS: BP 119/75; PULSE 89; RESP 18; TEMP 36.3; O2SAT 96
[2024-07-11] MEDS: PANTOPRAZOLE DR 20 MG TABLET PO (05:07)
[2024-07-11 08:00] VITALS: BP 125/73; PULSE 86; RESP 17; TEMP 36.1; O2SAT 95
[2024-07-11] MEDS: AMLODIPINE 5 MG TABLET 10 MG PO (09:46)
[2024-07-11] MEDS: ATORVASTATIN 20 MG TABLET 80 MG PO (09:47)
[2024-07-11] MEDS: ASPIRIN EC 81 MG TABLET PO (09:47)
[2024-07-11] MEDS: HEPARIN 5,000 UNIT/ML VIAL 5000 UNIT SUBCUT ×2 (09:47→20:56)
[2024-07-11] MEDS: CLOPIDOGREL 75 MG TABLET PO (09:47)
--- NOTE | 2024-07-11 10:45 | PT.IPTN ---
Physical Therapy Treatment Note M2 PT-IP Current Condition Start: 07/09/24 13:25 Freq: NEEDED Status: Active Protocol: Document 07/09/24 09:45 AB (Rec: 07/09/24 13:38 AB [id number]) Physical Therapy Current Condition Current Condition Evaluation Date 07/09/24 Treatment Diagnosis CVA; difficulty in walking Onset Date 07/08/24 M3 PT-IP Subjective Start: 07/09/24 13:25 Freq: NEEDED Status: Active Protocol: Document 07/11/24 10:10 KS (Rec: 07/11/24 11:29 KS [id number]) Subjective Physical Therapy Visit Type Type Treatment Note Visit Start Time 10:10 Visit Stop Time 10:45 Number of LEG ASSEMBLER Visits 1 Physical Therapy Visit Comments Patient Comments Pt agreeable to participate in PT. M4 PT-IP Mobility and Gait Start: 07/09/24 13:25 Freq: NEEDED Status: Active Protocol: Document 07/11/24 10:10 KS (Rec: 07/11/24 11:29 KS [id number]) PT-Bed Mobility Assessment Supine to Sit Supine to Sit Standby Assistance Sit to Supine Sit to Supine Standby Assistance Scooting Scooting to Edge of Bed Standby Assistance PT-Transfer Assessment Sit to and From Stand Sit to and from Stand Contact Guard Assistance,1 Person Assistance,Use of Upper Extremities Equipment Transfer Assistive Device Gait Belt,Front Wheeled Walker Transfers Transfer Destination Bed Transfer Technique Ambulated Transfer Ability Level of Assist Contact Guard Assistance,1 Person Assistance,Use of Upper Extremities Comments Mobility Comments Pt in bed upon arrival, agreeable to ambulate and states she does not feel dizzy this AM. SBA for sup<>sit and scooting EOB. CGA for sit<> stand w/ FWW. Pt ambulated ~95 ft w/ FWW. Ambulates with short stride and decreased foot clearance. She demonstrated good use of FWW, but comes close to obstacles ocassionally needing some cues to avoid. She returned to bed CGA. Gait Assessment Gait Gait Assistance Required: Contact Guard Assist Distance (Feet) 95 Assistive Devices Assistive Device Gait Belt,Front Wheeled Walker Orthotic/Prosthetic Devices or Brace: No Gait Deviations General Gait Pattern Decreased Stride Length, Decreased Feet Clearance Comments Gait Comments Fidelia has some mild veering while using her FWW, reports field cut. PT-Balance Assessment Sitting Balance and Reactions Static Sitting Balance Ability Good Dynamic Sitting Balance Ability Good Standing Balance and Reactions Static Standing Balance Ability Fair Dynamic Standing Balance Ability Fair Device Used FWW M5 PT-IP Objective Assessments Start: 07/09/24 13:25 Freq: NEEDED Status: Active Protocol: Document 07/09/24 09:45 AB (Rec: 07/09/24 13:38 AB [id number]) Orientation Orientation/Cognition Level of Alertness Alert Orientation Name,Place,Situation Language Function Ability Hard of Hearing Safety Awareness Decreased Safety Awareness Memory Description No Deficits Noted Gross Range of Motion Lower Extremity ROM Assessment Within Functional Limits Strength Lower Extremity Strength Assessment Within Functional Limits Sensation Assessment Sensation Gross Sensation Right UE Impaired Sensation Description Numbness Comments Sensation Comments c/o slight numbness on RUE Muscle Tone Muscle Tone WNL Yes M6 PT-IP Treatment Start: 07/09/24 13:25 Freq: NEEDED Status: Active Protocol: Document 07/11/24 10:10 KS (Rec: 07/11/24 11:29 KS [id number]) Physical Therapy Treatment Education Education Provided Safety M7 PT-IP Assessment and Plan Start: 07/09/24 13:25 Freq: NEEDED Status: Active Protocol: Document 07/11/24 10:10 KS (Rec: 07/11/24 11:29 KS [id number]) PT Summary Assessment and Plan Potential Rehabilitation Potential Fair Summary Impairments Pain,ROM,Strength,Balance, Coordination,Sensation,Tone, Cognition,Bed Mobility, Transfers,Gait,Activity Tolerance Progress Towards Goals Progressing Toward Goals Assessment Summary Pt continues to move cautiously, but overall only needs SBA to CGA for most mobility. She was able to tolerte ~95 ft of ambulation using FWW, requires few cues for obstacle avoidance. Will continue to assess progress. Goals Bed Mobility Goal Independent Transfer Goal Independent,Front Wheeled Walker Gait Goal Independent,Front Wheel Walker Gait Distance 200 Days to Meet Goals 10 Frequency of Treatment Frequency Of Treatment Once a Day Other frequency 1 PA Treatment Plan Physical Therapy Treatment Plan Bed Mobility Training,Transfer Training,Gait Training, Therapeutic Exercise,Balance Retraining,Post Op Education, Discharge Planning,Hot or Cold Pack,Neuromuscular Re-ed, Coordination Retraining,Manual Therapy Precautions Other Precautions falls Recommendations To Nursing Amount of Assist Needed 1 Person Assist Discharge Recommendations PT Discharge Recommendations Acute Rehab Transportation Needs at Discharge Private Vehicle
[2024-07-11 12:00] VITALS: BP 120/78; PULSE 87; RESP 17; TEMP 35.8; O2SAT 96
--- NOTE | 2024-07-11 12:09 | CM.DPNOTE ---
DCP note MAIL CENSOR reviewed EMR LVM with Maty from [facility] [phone] for DCP coordination, no response as of 1200. P: dc to [facility] vs home with sister and [facility] pending auth/pt preference. transport pending. CM team will continue to follow closely TIFFANY Kelly
--- NOTE | 2024-07-11 12:10 | PM.PN.IH.1 ---
Subjective Subjective Date Patient Seen: 07/11/24 Time Patient Seen: 11:30 Interval history: Narrative: 73 year old female with past medical history of CVA, GERD, HTN, HLD, anxiety/depression, DM, osteoarthritis and chronic pain was sent here from [facility] in [facility] for new CVA. Per report, the patient on 05/09/24 was diagnosed with a lacunar stroke in the right zainab and with some left sided weakness. The patient also had carotid dopplers that were negative. The patient was started on duoneb antiplatelet therapy. 07/02/24 the patient also had speech difficulty and was admitted to stroke service on 07/03/24. During that admission, stroke workup however was negative and they though there was possible capsular syndrome. EEG also was negative. However, the patient presented to [facility] ER 07/07/24 again for speech deficits and RUEs weakness. NIH there was 6 but did improved to 2 per their ER physician. MRI shows new infarct and recommended to be on ASA/plavix x 21 days. The patient was supposed to have acute rehab there, however, due to lack of beds at [facility], the patient is to be transfer and admitted here for ongoing PT/OT and to be transfer back to [facility] for rehab when a bed opens up. The patient was seen in our medical telemetry floor. The patient speech is much improved and she is non focal on exam. Patient NIH score is a 1. Otherwise, the patient denies any headache, focal weakness, fever, chills, nausea, vomiting or diarrhea. Denies any chest pain or shortness of breath. Interval history: The patient is calm, appears comfortable, with persistent left visual field cut noted, otherwise no focal neurologic deficits evident on interview, pleasant, intermittently tearful or laughing. Exam Vital Signs (past 8 hours): - 07/11/24 08:00 07/11/24 12:00 Temperature 97.0 F L 96.5 F L Pulse Rate 86 87 Respiratory Rate 17 17 Blood Pressure 125/73 120/78 Pulse Oximetry 95 96 Oxygen Flow Rate 0 0 Oxygen Delivery Method Room Air Oxygen Flow Rate 0 Narrative Exam Narrative: GENERAL: This is a well-nourished, well-developed patient, in no apparent distress. EYES: Pupils equal round and reactive. Extraocular motions intact. No scleral icterus. No injection or drainage. Left visual field cut. ENT: Mucous membranes pink and moist. NECK: Trachea midline. No JVD, bruits or lymphadenopathy. Supple, nontender, no meningeal signs. CARDIOVASCULAR: Regular rate and rhythm without murmurs, gallops, or rubs. RESPIRATORY: Clear to auscultation. GASTROINTESTINAL: Abdomen soft, non-tender, nondistended. EXTREMITIES: No clubbing, cyanosis, or edema. BACK: Nontender without deformity or crepitance. No flank tenderness. NEUROLOGIC: Alert, oriented, speech fluent, with left visual field cut noted, full upper and lower motor strength, otherwise no focal deficits evident. Tends to move to right with walking. DERMATOLOGIC: No rashes or skin lesions. Objective Labs 07/09/24 05:13 07/09/24 05:13 [facility] Medical History Allergic rhinitis Arthritis Back pain Bronchiectasis C. difficile colitis Chronic cough COVID-19 Diabetes mellitus GERD (gastroesophageal reflux disease) Gout Hypertension Lacunar cerebrovascular accident (CVA) (~05/09/24) Opioid dependence in remission Osteoarthritis Rotator cuff arthropathy Shortness of breath Surgical History History of bronchoscopy History of tonsillectomy Family History Sister Breast CA Son Leukemia Social History household members: family Smoking Status: Never smoker alcohol intake: never Assessment & Plan Assessment & Plan narrative: 1. New left pontine CVA with known old known stroke. MRI 07/07/2024 showed new increased diffusion-weighted signal intensity within the left zainab may represent a new small vessel infarct superimposed on vascular ischemic changes Possible visual field cut and changes in affect with stroke. Monitor clinically on observation status on medical telemetry. Blood pressures are controlled and she remains in normal sinus rhythm. Echocardiogram 05/2024 showed ejection fraction 60%, no wall motion abnormalities, trace aortic, mitral and tricuspid regurgitation. PT/OT/ST. Continue ASA/Plavix/BP meds/Statins. Once there is a rehab bed that opens up at [facility] consider to transfer the patient back. The patient is agreeable with this plan. 2. Diabetes mellitus, type 2. Well-controlled. Hold home oral DM medications (resume at discharge) and monitor glucose with SQ insulin while in the hospital. 3. HTN. Blood pressure well controlled. Monitor BP and continue amlodipine and resume home losartan when blood pressures rising accordingly. 4. Hyperlipidemia. Continue statin. DVT PPx hep SQ Code status full code Disposition rehab in 1-2 days pending insurance authorization. Quality VTE Deep Vein Thrombosis/Pulmonary Embolism Present on Admission: No PROFEE Scalp Specialist Document charge(s): No Charge Codes Subsequent inpatient/observation care: [id number]
[2024-07-11 16:00] VITALS: BP 125/71; PULSE 95; RESP 17; TEMP 35.7; O2SAT 95
[2024-07-11] MEDS: INSULIN LISPRO 100 UNIT/ML 3ML VIAL SUBCUT (17:12)
[2024-07-11 20:00] VITALS: BP 122/80; PULSE 91; RESP 20; TEMP 36.1; O2SAT 96
[2024-07-11] MEDS: OXYCODONE IR 5 MG TABLET PO (23:33)
--- NOTE | 2024-07-11 23:47 | PC.NURSE ---
Assume care of patient at 07/11/24 [id number].
[2024-07-12] VITALS: BP 108/70; PULSE 86; RESP 17; TEMP 37; O2SAT 96
[2024-07-12 04:00] VITALS: BP 115/71; PULSE 81; RESP 17; TEMP 36.4; O2SAT 97
[2024-07-12] MEDS: PANTOPRAZOLE DR 20 MG TABLET PO (05:44)
[2024-07-12 08:00] VITALS: BP 125/79; PULSE 85; RESP 17; TEMP 35.9; O2SAT 95
[2024-07-12] MEDS: AMLODIPINE 5 MG TABLET 10 MG PO (08:31)
[2024-07-12] MEDS: ATORVASTATIN 20 MG TABLET 80 MG PO (08:31)
[2024-07-12] MEDS: ASPIRIN EC 81 MG TABLET PO (08:31)
[2024-07-12] MEDS: CLOPIDOGREL 75 MG TABLET PO (08:31)
[2024-07-12] MEDS: HEPARIN 5,000 UNIT/ML VIAL 5000 UNIT SUBCUT (08:31)
--- NOTE | 2024-07-12 10:45 | PT.IPTN ---
Physical Therapy Treatment Note M2 PT-IP Current Condition Start: 07/09/24 13:25 Freq: NEEDED Status: Active Protocol: Document 07/09/24 09:45 AB (Rec: 07/09/24 13:38 AB [id number]) Physical Therapy Current Condition Current Condition Evaluation Date 07/09/24 Treatment Diagnosis CVA; difficulty in walking Onset Date 07/08/24 M3 PT-IP Subjective Start: 07/09/24 13:25 Freq: NEEDED Status: Active Protocol: Document 07/12/24 09:12 AB(2) (Rec: 07/12/24 10:45 AB(2) [id number]) Subjective Physical Therapy Visit Type Type Treatment Note Visit Start Time 09:22 Visit Stop Time 09:43 Notes BP start of session 112/66 HR 86 O2 sat 95 % end of session 130/76 HR 97 BPM O2 sat 97%. Number of MEDICAL ASSISTANT OB GYN Visits 3 Physical Therapy Visit Comments Patient Comments Pt agreeable to participate in PT. Therapy Pain Assessment Pain When Pain Assessed At Rest Pain Present Pain Present Denied Pain M4 PT-IP Mobility and Gait Start: 07/09/24 13:25 Freq: NEEDED Status: Active Protocol: Document 07/12/24 09:12 AB(2) (Rec: 07/12/24 10:45 AB(2) [id number]) PT-Bed Mobility Assessment Sit to Supine Sit to Supine Standby Assistance Scooting Scooting to Edge of Bed Standby Assistance PT-Transfer Assessment Sit to and From Stand Sit to and from Stand Standby Assistance,1 Person Assistance,Use of Upper Extremities Equipment Transfer Assistive Device Gait Belt,Front Wheeled Walker Orthotic/Prosthetic Devices or Brace: No Gait Assessment Gait Gait Assistance Required: Standby Assistance,Contact Guard Assist Distance (Feet) 75 Assistive Devices Assistive Device Gait Belt,Front Wheeled Walker ,4 Wheeled Walker Orthotic/Prosthetic Devices or Brace: No Gait Deviations General Gait Pattern Decreased Stride Length, Decreased Feet Clearance Comments Gait Comments Fidelia ambulated with 4 wheeled walker 75 feet CGA and 2 wheeled walker supervision 45 feet ( as discussed with PT Danelle Burns prior session due to patient using 4 wheeled alkwer at home. Patient comments she feels the 4 wheeled walker is controlling her. Patient comments she has a 2 wheeled walker at home also. Prior to sit to supine patient reports feeling dizzy. sit to supine with supervision, end of session 130/76 HR 97 BPM O2 sat 97%. Call light within reach bed alarm on. PT-Balance Assessment Sitting Balance and Reactions Static Sitting Balance Ability Good Dynamic Sitting Balance Ability Good Standing Balance and Reactions Static Standing Balance Ability Fair Dynamic Standing Balance Ability Fair Device Used FWW/ four wheeld walker M5 PT-IP Objective Assessments Start: 07/09/24 13:25 Freq: NEEDED Status: Active Protocol: Document 07/09/24 09:45 AB (Rec: 07/09/24 13:38 AB [id number]) Orientation Orientation/Cognition Level of Alertness Alert Orientation Name,Place,Situation Language Function Ability Hard of Hearing Safety Awareness Decreased Safety Awareness Memory Description No Deficits Noted Gross Range of Motion Lower Extremity ROM Assessment Within Functional Limits Strength Lower Extremity Strength Assessment Within Functional Limits Sensation Assessment Sensation Gross Sensation Right UE Impaired Sensation Description Numbness Comments Sensation Comments c/o slight numbness on RUE Muscle Tone Muscle Tone WNL Yes M6 PT-IP Treatment Start: 07/09/24 13:25 Freq: NEEDED Status: Active Protocol: Document 07/12/24 09:12 AB(2) (Rec: 07/12/24 10:45 AB(2) [id number]) Physical Therapy Treatment Education Education Provided Safety Other Treatments Other Treatment Performed Verbal cues to push off from chair with UE vs 4 wheeled walker M7 PT-IP Assessment and Plan Start: 07/09/24 13:25 Freq: NEEDED Status: Active Protocol: Document 07/12/24 09:27 MB (Rec: 07/12/24 09:28 MB [id number]) PT Summary Assessment and Plan Goals Bed Mobility Goal Independent Transfer Goal Independent,Front Wheeled Walker,Four Wheeled Walker Gait Goal Independent,Front Wheel Walker ,Four Wheel Walker Gait Distance 100 Other Goals Pt will perform WNLs on a standardized balance test to decrease fall risk. Progress gait with LRAD and work on balance activities with gait to improve functional I. Days to Meet Goals 5 Frequency of Treatment Frequency Of Treatment Once a Day Other frequency +1
--- NOTE | 2024-07-12 11:27 | PC.NURSE ---
Patient is alert and oriented x4, she denies pain and is ambulating with a one person assist and walker. Ambulated with physical therapy eariler and states that she felt dizzy. This did reside and her blood pressure was 120s/70s. She is resting comfortably now and her NIH scale is 0.
--- NOTE | 2024-07-12 11:40 | OT.IP.TRT ---
Occupational Therapy Treatment Note M2 OT-IP Current Condition Start: 07/09/24 12:18 Freq: Status: Active Protocol: Document 07/09/24 12:18 CGR (Rec: 07/09/24 12:55 CGR [id number]) Occupational Therapy Current Condition Current Condition Evaluation Date 07/09/24 Treatment Diagnosis 07/07 new onset CVA, recent 05/09 CVA Diagnosis Onset Date 07/08/24 M3 OT- IP Subjective and Pain Start: 07/09/24 12:18 Freq: Status: Active Protocol: Document 07/12/24 15:02 CGR (Rec: 07/12/24 15:09 CGR [id number]) OT- Subjective Occupational Therapy Visit Type Type Treatment Note Visit Start Time 11:17 Visit Stop Time 11:40 Notes Pt is in bathroom when OT enters OT Pain Assessment Pain When Pain Assessed At Rest Pain Present Pain Present Denied Pain M4 OT- IP ADL's Start: 07/09/24 12:18 Freq: Status: Active Protocol: Document 07/12/24 15:02 CGR (Rec: 07/12/24 15:09 CGR [id number]) OT [id number] Comments OT Self-Feeding Comments not meal time OT ADL-Grooming Comments OT Grooming Comments not performed OT ADL-Oral Care Comments Oral Care Comments not performed OT ADL-Dressing General Eval Lower Body Dressing Ability Standby Assistance Areas Needing Assistance Underpants/Brief Comments OT Dressing Comments donned clean breif seated in chair. OT ADL-Toileting General Evaluation Toileting Ability Standby Assistance Comments OT Toileting Comments for urination seated on toielt OT ADL-Bathing Comments OT Bathing Comments not performed M5 OT- IP IADL's Start: 07/09/24 12:18 Freq: Status: Active Protocol: Document 07/09/24 12:18 CGR (Rec: 07/09/24 12:55 CGR [id number]) OT-Instrumental Activities of Daily Living Deficits IADL Deficits Identified Deficits Home Safety Awareness Awareness of Need for Assistance at Home Decreased Awareness Ability to Problem Solve Emergency Able to Problem Solve Situations Medication Management Medication Management Caregiver Administers Money Management Money Management Comments Unsure if pt's sister now takes care of finnces. Meal Preparation Meal Preparation Caregiver Provides Assist Bar Host Bar Host Caregiver Provides Assist Driving Driving Comments Pt states that she has not been able to drive since the May CVA. M6 OT- IP Functional Cognition Start: 07/09/24 12:18 Freq: Status: Active Protocol: Document 07/12/24 15:02 CGR (Rec: 07/12/24 15:09 CGR [id number]) Cognitive Factors Limiting Selfcare Function Cognitive Ability Level of Alertness Alert Cognitive Tests SLUMS Pt paticiated in SLUMS today with a total score of 22/30. Pt answered all orientation questions and performed simple math with extra time. PT was able to name 6 animals in 1 minute and rememver 3 of the 5 items. Pt Pt then was able to do number series for a 3 sequence number but not the 4 sequence. pt earned full points for her clock, but of note, she had difficulty and needs extra time. Pt identified the triangle to be the rectangle and missed one of the listening comprehension questions. The form has been added to her paper file to be scanned into this visit. M7 OT- IP Mobility and Balance Start: 07/09/24 12:18 Freq: Status: Active Protocol: Document 07/12/24 15:02 CGR (Rec: 07/12/24 15:09 CGR [id number]) OT-Transfer Assessment Sit to and From Stand Sit to and from Stand Standby Assistance,Contact Guard Assistance Transfers Transfer Ability Standby Assistance,Contact Guard Assistance Technique Transfer Destination Chair,Toilet Transfer Technique Stand Step Pivot Devices Transfer Assistive Devices Gait Belt,Front Wheeled Walker Comments Mobility Comments mobility aorudn bedroom and bathroom OT- Balance Assessment Sitting Balance and Reactions Static Sitting Balance Ability Normal Dynamic Sitting Balance Ability Normal M8 OT- IP Objective Assessments Start: 07/09/24 12:18 Freq: Status: Active Protocol: Document 07/09/24 12:18 CGR (Rec: 07/09/24 12:55 CGR [id number]) OT Gross Range of Motion Upper Extremity Range of Motion Assessment Within Functional Limits OT Strength Upper Extremity Strength Assessment Right Impaired Comments Strength Comments R shld 3/5 L shld 4/5 R arm 4-/5 L arm 4+/5 R hand 4/5 L hand 4/5 OT- Coordination Assessment Upper Extremity Finger to Nose Test Within Functional Limits Finger Tapping Test Within Functional Limits Comments Coordination Comments with extra time OT-Muscle Tone Assessment Muscle Tone WNL Yes OT Sensation Assessment Comments Summary Comments Pt states that her R arm throughout is tingly Edema Edema Absent M9 OT- IP Assessment and Plan Start: 07/09/24 12:18 Freq: Status: Active Protocol: Document 07/12/24 15:02 CGR (Rec: 07/12/24 15:09 CGR [id number]) OT Summary Assessment and Plan Potential Rehabilitation Potential Good Analytic Complexity at Evaluation Moderate Summary OT Impairments Strength,Balance,Sensation, Functional Cognition, Functional Mobility,Bathing, Toilet Transfers,Shower Transfers,Activity Tolerance Progress Towards Goals Progressing Toward Goals Assessment Summary Pt presents as a moderate complexity evaluation s/p admit for new onset R sided weakness and speech deficits. Pt participated in SLUMS in todays session with a score of 22/30. Notes above. Pt will continue to benefit from therapy services. Goals Self-Feeding Goal Independent Grooming Goal Independent Dressing Goal Independent Toileting Goal Independent Bathing Goal Independent Toilet Transfer Goal Independent OT-Other Goals complete cog assessment Days to Meet Goals 15 Frequency of Treatment Other frequency 5x a week Treatment Plan OT Treatment Plan ADL Training,Functional Cognition Training,Functional Mobility,Patient/Family Education,Discharge Planning Other Treatment Recommendations and Next SLUMS Treatment Focus Discharge Recommendations OT Discharge Recommendations SNF Rehab Transportation Needs at Discharge Private Vehicle
[2024-07-12] MEDS: INSULIN LISPRO 100 UNIT/ML 3ML VIAL SUBCUT (12:34)
--- NOTE | 2024-07-12 14:23 | PM.DS.1 ---
History of Present Illness History of Present Illness Date Patient Seen: 07/12/24 Time Patient Seen: 14:23 Chief complaint: sent by [facility] ED Narrative: Per admitting provider, 73 year old female with past medical history of CVA, GERD, HTN, HLD, anxiety/depression, DM, osteoarthritis and chronic pain was sent here from [facility] in [facility] for new CVA. Per report, the patient on 05/09/24 was diagnosed with a lacunar stroke in the right zainab and with some left sided weakness. The patient also had carotid dopplers that were negative. The patient was started on duoneb antiplatelet therapy. 07/02/24 the patient also had speech difficulty and was admitted to stroke service on 07/03/24. During that admission, stroke workup however was negative and they though there was possible capsular syndrome. EEG also was negative. However, the patient presented to [facility] ER 07/07/24 again for speech deficits and RUEs weakness. NIH there was 6 but did improved to 2 per their ER physician. MRI shows new infarct and recommended to be on ASA/plavix x 21 days. The patient was supposed to have acute rehab there, however, due to lack of beds at [facility], the patient is to be transfer and admitted here for ongoing PT/OT and to be transfer back to [facility] for rehab when a bed opens up. The patient was seen in our medical telemetry floor. The patient speech is much improved and she is non focal on exam. Patient NIH score is a 1. Otherwise, the patient denies any headache, focal weakness, fever, chills, nausea, vomiting or diarrhea. Denies any chest pain or shortness of breath. Discharge Providers Provider Date of admission: 07/08/24 18:31 Discharge Date: 07/12/24 Primary care physician: Alyssa Lim MD Consults: 07/08/24 21:10 Consult to Occupational Therapy Evaluate & Treat Comment: Physician Instructions: Evaluate and treat Consult to Physical Therapy Evaluate & Treat Comment: Physician Instructions: Evaluate and Treat 07/08/24 21:22 Consult to Speech Therapy Evaluate & Treat Comment: Physician Instructions: Evaluate and treat 07/09/24 11:37 Consult to Home Health Routine Comment: Reason For Exam: Home health RN/PT/OT upon discharge Discharge provider: Tramaine Noyola DO Summary Hospital Course Discharge Diagnosis: 1. New left pontine CVA with known old known stroke. 2. Diabetes mellitus, type 2. Well-controlled. 3. HTN. 4. Hyperlipidemia. Hospital Course: This is a pleasant 73-year-old female with a past medical history of type 2 diabetes, hypertension, hyperlipidemia and recent stroke who was transferred from the [facility] Emergency room after she was found there to have a new infarct on MRI. She was started on aspirin and Plavix, and atorvastatin had been increased already to 80 mg. She continued to progress well with physical and occupational therapies. She was initially recommended for acute rehab, however they were unable to find a bed. By July 12 the patient had progressed well enough to discharge home with home assistance. Home medications were prescribed. I recommend follow-up with her neurology group as an outpatient as well as primary care provider. No other changes to her home medications were made at the time of discharge. Of note A1c on outside labs: 07/08/2024 was 7.3%. Time Spent with Patient Time spent: Greater than 30 minutes Exam Vital Signs (past 8 hours): - 07/12/24 08:00 Temperature 96.7 F L Pulse Rate 85 Respiratory Rate 17 Blood Pressure 125/79 Pulse Oximetry 95 Oxygen Flow Rate 0 Oxygen Delivery Method Room Air Oxygen Flow Rate 0 Narrative Exam Narrative: GENERAL: This is a well-nourished, well-developed patient, in no apparent distress. EYES: Pupils equal round and reactive. Extraocular motions intact. No scleral icterus. No injection or drainage. Left visual field cut. ENT: Mucous membranes pink and moist. NECK: Trachea midline. No JVD, bruits or lymphadenopathy. Supple, nontender, no meningeal signs. CARDIOVASCULAR: Regular rate and rhythm without murmurs, gallops, or rubs. RESPIRATORY: Clear to auscultation. GASTROINTESTINAL: Abdomen soft, non-tender, nondistended. EXTREMITIES: No clubbing, cyanosis, or edema. BACK: Nontender without deformity or crepitance. No flank tenderness. NEUROLOGIC: Alert, oriented, speech fluent, with left visual field cut noted, full upper and lower motor strength, otherwise no focal deficits evident. Tends to move to right with walking. DERMATOLOGIC: No rashes or skin lesions. Objective Labs 07/09/24 05:13 07/09/24 05:13 [facility] Medical History Allergic rhinitis Arthritis Back pain Bronchiectasis C. difficile colitis Chronic cough COVID-19 Diabetes mellitus GERD (gastroesophageal reflux disease) Gout Hypertension Lacunar cerebrovascular accident (CVA) (~05/09/24) Opioid dependence in remission Osteoarthritis Rotator cuff arthropathy Shortness of breath Surgical History History of bronchoscopy History of tonsillectomy Family History Sister Breast CA Son Leukemia Social History household members: family Smoking Status: Never smoker alcohol intake: never Discharge Plan Discharge Plan Patient Disposition: Home Provider Discharge Comment: You were admitted to the hospital with a new stroke, improved with therapies. Okay per therapy team to discharge home. Please follow up with primary care provider and neurology group after discharge. Discharge orders & Medications Prescriptions: New clopidogrel 75 mg tablet 75 mg PO DAILY 21 Days Qty: 21 0RF atorvastatin 80 mg tablet 80 mg PO BEDTIME 90 Days Qty: 90 0RF Continued cetirizine 10 mg Tablet 10 mg PO DAILY PRN (Reason: ALLERGIES) aspirin 81 mg Tablet,Delayed Release (Dr/Ec) 81 mg PO DAILY amlodipine 10 mg Tablet 10 mg PO DAILY losartan 50 mg Tablet 75 mg PO DAILY metformin 500 mg Tablet 500 mg PO BID Rx Instructions: WITH MEALS ipratropium-albuterol 0.5 mg-3 mg(2.5 mg base)/3 mL Solution For Nebulization 3 ml INHALATION Q6H PRN (Reason: Wheezing) diclofenac sodium 1 % Gel 1 g TOPICAL QID PRN (Reason: Pain, Mild) Rx Instructions: apply to single elbow, wrist or hand; for hand includes palm/fingers/back of hand omeprazole 20 mg Capsule,Delayed Release(Dr/Ec) 20 mg PO DAILY oxycodone 5 mg Tablet 5 mg PO Q6H PRN (Reason: Pain (Scale Score 7-10)) atorvastatin 80 mg Tablet 80 mg PO DAILY 90 Days Qty: 90 0RF clopidogrel [Plavix] 75 mg Tablet 75 mg PO DAILY 21 Days Qty: 21 0RF Follow up/Referrals: Alyssa Lim MD [Primary Care Provider] - Diet/Activity/Treatments Diet: Diet as Tolerated and Regular Activity: As tolerated, no restrictions Visit Report/Discharge Packet Instructions: Ischemic Stroke, DI for Stroke-Ischemic Stand Alone Forms: Patient Portal/API, Stroke Signs & Symptoms Discharge Data Primary Care Provider: Alyssa Lim Attending Provider: Tramaine Noyola [place] Date/Time: 07/08/24 18:31 Quality VTE Deep Vein Thrombosis/Pulmonary Embolism Present on Admission: No
--- NOTE | 2024-07-12 14:39 | CM.DPNOTE ---
DCP Note ASSEMBLY LOADER reviewed EMR per previous CM notes, potential dc to [facility] today pending auth/bed availability. ASSEMBLY LOADER left 4 voicemails throughout the day. no response as of 1430. Per provider, medically cleared to dc today. Per PT/OT, improvements over past few days. could safely dc home today with family support. ASSEMBLY LOADER met with pt in room. Walking around indep with walker. report at this point would rather dc home with [facility] and not wait on [facility] if they're not responding to this ASSEMBLY LOADER. report sister could take her home, agreed to let this CM call sister Kevin to review plan. ASSEMBLY LOADER spoke with sister Kevin ([phone]). reviewed DCP. Kevin reports she will be with pt 30/12 at home, agreeable to taking pt home with [facility] resumption. Kevin reports her and pt's niece/nephew will be there to pick pt up at 1530 jovany today. Kevin would like to be present when DCP is reviewed so she knows what to look for if pt's symptoms get worse ASSEMBLY LOADER updated provider/RN. provider to write dc orders for home with . ASSEMBLY LOADER spoke with Clay at [facility], report they have all the needed information for dc except dc summary. MUNA Rapp kindly agreed to send [facility] DC summary when available. P: dc home today with [facility] to follow and sister/additional family support at home. family to transport in POV. CM team will continue to follow as needed TIFFANY Kelly
--- NOTE | 2024-07-16 12:54 | CM.DPNOTE ---
DCP Follow Up Note: Reviewed EMR and team rounds for pt?s medical status. Pt discharged home on 07/12/24, noted that [facility] was to follow with care. Per Marsha RN, discharge summary was not received and requested a follow up. DCP sent discharge summary to [facility] fax number. BRITTANEY Vogt
== END 2024-07-12 16:19 | disposition home or self-care (01) ==
PROVIDERS: Internal Medicine; Admitting Provider Internal Medicine; PCP Internal Medicine Geriatric Medicine; Referring Provider Emergency Medicine; Visit Provider Internal Medicine
DX: I63.81 Other cerebral infarction due to occlusion or stenosis of small artery (principal); I69.354 Hemiplegia and hemiparesis following cerebral infarction affecting left non-dominant side; R29.701 NIHSS score 1; G89.29 Other chronic pain; I10 Essential (primary) hypertension; E11.9 Type 2 diabetes mellitus without complications; F41.9 Anxiety disorder, unspecified; F32.A Depression, unspecified; E78.5 Hyperlipidemia, unspecified; K21.9 Gastro-esophageal reflux disease without esophagitis; M19.90 Unspecified osteoarthritis, unspecified site; Z79.01 Long term (current) use of anticoagulants; Z79.82 Long term (current) use of aspirin; Z79.84 Long term (current) use of oral hypoglycemic drugs
CPT/HCPCS: 36415; 80048; 82962; 85025; 92523; 96360; 96361; 96372; 97116; 97129; 97162; 97166; 97530; 97535; G0378; G0379; J1644; J1815